=== PATIENT | female | born 1955 | race Hispanic/Latino ===

== ENCOUNTER 2019-07-29 17:18 | Emergency (ER) | payer MEDICARE, BC ==
[~2019-07-29] VITALS: Ht 147.3 cm; Wt 60.8 kg
--- OUTSIDE RECORDS SUMMARY | 2019-07-29 17:21 | XMS REPORT ---
Author Author [facility] Address Unknown Phone Unavailable Care Team Providers Care Sales Consultant Name Role Phone Unavailable Unavailable Payers Payer Name Policy Type Policy Number Effective Date Expiration Date Problems This patient has no known problems. Allergies, Adverse Reactions, Alerts Allergy Name Allergy Type Status Severity Reaction(s) Onset Date Inactive Date Treating Clinician Comments aspirin DA Active [place] 2018-11-14 00:00:00 DALE Inhibitors DA Active [place] 2018-10-21 00:00:00 DALE Inhibitors DA Active [place] 2018-10-20 00:00:00 DALE Inhibitors DA Active [place] 2018-02-17 00:00:00 Medications This patient has no known medications. Encounters Start Date/Time End Date/Time Encounter Type Admission Type Attending [facility] Facility Care Department Encounter ID 2019-03-27 08:11:00 2019-03-27 08:11:00 Outpatient [facility] [id number] Results Test Description Test Time Test Comments Text Results Atomic Results Result Comments - MRA NECK W/O CONT 2018-11-14 19:53:00 FAX: Tico Cardona MD [phone] [place]: B St: ADM FAX: Peace Tolentino [phone] Name: LEXIE PEREZ [facility] : 1955 Age/S: 63/F [address] [place] Unit #: [id number] Loc: [place] [place] [address] Phys: Peace Auguste MD Acct: [id number] Dis Date: Status: ADM IN PHONE #: [phone] Exam Date: 11/14/2018 1930 FAX #: [phone] Reason: TIA symptoms, slurred speech and left sided wea EXAMS: CPT CODE: [id number] MRA NECK W/O CONT 40090 REASON FOR EXAM: TIA symptoms, slurred speech and left sided weakness EXAM ORDER DATE: 11/14/2018 5:14 PM Ordering M.Wendi: Peace Auguste MD PROCEDURE: - MRA NECK W/O CONT FINDINGS: 2-D omfw-sr-vnriox images of the neck were obtained without IV contrast using MR angiogram protocol. The carotid and vertebral arteries are unremarkable. No evidence of stenosis or fluid obstructing lesion. Metallic artifact obscuring portion of the right vertebral artery IMPRESSION: Unremarkable cervical angiogram at 1952 Reported and signed by: Shaun Pickens M.D. CC: Tico Bella; Peace Auguste MD Technologist: RT EVE - MRI Trninrd Date/Time/By: 11/14/2018 (1952) : By: Corey Orig Print D/T: S: 11/14/2018 (1956) PAGE 1 Signed Report - MRI BRAIN W/O CONTRAST 2018-11-14 19:50:00 FAX: Tico Cardona MD [phone] [place]: B St: [facility] FAX: Peace Tolentino [phone] Name: LEXIE PEREZ [facility] : 1955 Age/S: 63/F [place] Unit #: [id number] Loc: [address] [place] [address] Phys: Peace Auguste MD Acct: [id number] Dis Date: Status: ADM IN PHONE #: [phone] Exam Date: 11/14/20181950 FAX #: [phone] Reason: TIA symptoms, slurred speech and left sided wea EXAMS: CPT CODE: [id number] MRI BRAIN W/O CONTRAST 41219 REASON FOR EXAM: TIA symptoms, slurred speech and left sided weakness Exam Order Date: 11/13/2018 5:14 PM Attending MLynda.: Peace Auguste MD Procedure: - MRI BRAIN W/O CONTRAST Comparison: FINDINGS: Axial, sagittal, and coronal images of the head were obtained using T1, T2 weighted, inversion recovery, and gradient echo sequences. The diffusion images are within normal limits without evidence of acute infarct. No IV gadolinium was given. The sagittal images show normal pituitary, cerebellum, and brain stem. No evidence of suprasellar mass. The axial T2, inversion recovery, and gradient e cho images show no evidence of intra or extra axial mass. The ventricles, cisterns, and sulci are unremarkable. No evidence of hemorrhage. Small punctate bright intensity signal lesions in the periventricular region consistent with nonspecific deep white matter disease. The cerebellar pontine angle area is within normal limits. There is no evidence of mass noted. The axial T1 images show no evidence of mass. No evidence of old infarct. The coronal images show normal optic chiasm. IMPRESSION: Minimal nonspecific deep white matter disease. Otherwise unremarkable brain. at 1950 Reported and signed by: Shaun Pickens M.D. PAGE 1 Signed Report (CONTINUED) FAX: Tico Cardona MD [phone] [place]: St: [facility] FAX: Peace Tolentino [phone] Name: LEXIE PEREZ [facility] : 1955 Age/S: 63/F [address] [facility] Unit #: [id number] Loc: V.[address] [place] [address] Phys: Peace Auguste MD Acct: [id number] Dis Date: Status: ADM IN PHONE #: [phone] Exam Date: 11/14/20181950 FAX #: [phone] Reason: TIA symptoms, slurred speech and left sided wea EXAMS: CPT CODE: [id number] MRI BRAIN W/O CONTRAST 16821 <Continued> CC: Tico Bella; Peace Auguste MD Technologist: SILVA MATAMOROSRT - [facility] Date/Time/By: 11/14/2018 (1949) : By: CharoVTL Orig Print D/T: S: 11/14/2018 (1952) PAGE 2 Signed Report TROPONIN-I 2018-11-14 02:14:00 TROPONIN-I (test code=TROPI) <0.015 ng/mL 0-0.045 COMMENTS TO CHECKER: COLLECT 3 HOURS AFTER PREVIOUS SAMPLEDRUGS OF ABUSE SCREEN [id number] 01:17:00* Test Item Value Reference Range Comments UA PH DIPSTICK (test code=NAI) 5.0 5.0-8.0 URN COCAINE (test code=COCAURN) NEGATIVE <300 ng/mL URN CANNABINOIDS (test code=CANNABURN) NEGATIVE <50 ng/mL URN AMPHETAMINE (test code=AMPHETURN) NEGATIVE <1000 ng/mL URN BARBITURATE (test code=BARBITURN) NEGATIVE <200 ng/mL URN BENZODIAZEPINE (test code=BENZOURN) NEGATIVE <200 ng/mL URN OPIATES (test code=OPIATURN) NEGATIVE <300 ng/mL URN PHENCYCLIDINE (PCP) (test code=PHENCURN) NEGATIVE <25 ng/mL URN METHADONE (test code=METHAURN) NEGATIVE <300 ng/mL DRUGS OF ABUSE SCREEN [id number] 00:48:00* Test Item Value Reference Range Comments UA PH DIPSTICK (test code=NAI) 5.0 5.0-8.0 URN COCAINE (test code=COCAURN) <300 ng/mL URN CANNABINOIDS (test code=CANNABURN) <50 ng/mL URN AMPHETAMINE (test code=AMPHETURN) <1000 ng/mL URN BARBITURATE (test code=BARBITURN) <200 ng/mL URN BENZODIAZEPINE (test code=BENZOURN) <200 ng/mL URN OPIATES (test code=OPIATURN) <300 ng/mL URN PHENCYCLIDINE (PCP) (test code=PHENCURN) <25 ng/mL URN METHADONE (test code=METHAURN) <300 ng/mL [id number] 22:42:00* Test Item Value Reference Range Comments TROPONIN-I (test code=TROPI) <0.015 ng/mL 0-0.045 COMMENTS TO CHECKER: COLLECT 3 HOURS AFTER PREVIOUS SAMPLEURINALYSIS [id number] 16:45:00* Test Item Value Reference Range Comments UA COLOR (test code=COLU) EVETTE YELLOW UA APPEARANCE (test code=APPU) Cloudy CLEAR UA GLUCOSE DIPSTICK (test code=DGLUU) NEGATIVE mg/dL NEGATIVE UA BILIRUBIN DIPSTICK (test code=BILU) NEGATIVE mg/dL NEGATIVE UA KETONE DIPSTICK (test code=KETU) Negative mg/dL NEGATIVE UA SPECIFIC GRAVITY (test code=SGU) 1.027 1.001-1.035 UA BLOOD DIPSTICK (test code=MARCELO) Negative NEGATIVE UA PH DIPSTICK (test code=NAI) 5.0 5.0-8.0 UA PROTEIN DIPSTICK (test code=PROU) Negative mg/dL NEGATIVE UA UROBILINIOGEN DIPSTICK (test code=URO) 4.0 (2+) mg/dL NEGATIVE UA NITRITE DIPSTICK (test code=DARRON) NEGATIVE NEGATIVE UA LEUKOCYTE ESTERASE W REFLEX (test code=LEUUR) TRACE NEGATIVE UA WBC (test code=WBCU) 0-5 #/HPF 0-5 UA RBC (test code=RBCU) 11-20 #/HPF 0-5 UA EPITHELIAL CELLS (test code=EPIU) FEW per HPF FEW UA CALCIUM CARBONATE CRYSTALS (test code=CACARBU) MODERATE #/HPF NONE UA MUCUS (test code=MUCU) MANY #/LPF FEW Urine Source? Clean Catch- CT HEAD/BRAIN W/O [id number] 16:45:00 Name: LEXIE PEREZ [facility] : 1955 Age/S: 63 / F [address] Unit #: [id number] Loc: [place] [address] Phys: Billy Auguste MD Acct: [id number] Di s Date: Status: REG ER PHONE #: Exam Date: 11/13/2018 1626 FAX #: Reason: left sided face/arm numbness, slurred speech EXAMS: CPT CODE: [id number] CT HEAD/BRAIN W/O CONT 70984 EXAM: CT of the head with out contrast; INFORMATION: Slurred speech, left-sided facial and a rm numbness; TECHNIQUE AND FINDINGS: CT dose reduction elizabeth col; 2.5 mm axial scans. There is no evidence of intra or extra-axia l hemorrhage, mass lesions or midline shift. Unremarkable hobson/white matter differentiation. Ventricles are symmetric and of normal diameter; sulci and basilar cisterns are intact. The calvarium is intact. Paranasal sinuses and mastoid air cells are well aerated. IMPR ESSION: Unremarkable CT scan of the head; no evidence of intracranial hemorrhage or acute territorial infarction. Pham gonzales Signed by Lizette Nieto on 11/13/2018 a t 1645 Reported and signed by: Av Barbosa ch, M.D. CC: Tico Bella; Peace Auguste MD Technologist:Roya Lauren RT(R),CT; CTDI: DLP: Tr nscb Date/Time: 11/13/2018 (612) [email or web address] Orig Print D/ T: S: 11/13/2018 (7226) CTDI: DLP: PAGE 1 Signed Report B-TYPE NATRIURETIC PEPTIDE 2018-11-13 16:41:00* Test Item Value Reference Range Comments B-TYPE NATRIURETIC PEPTIDE (test code=BNP) 56.84 pgram/mL 0-100 BASIC METABOLIC [id number] 16:37:00* Test Item Value Reference Range Comments SODIUM (test code=NA) 141 mmol/L 136-145 POTASSIUM (test code=K) 3.3 mmol/L 3.5-5.1 CHLORIDE (test code=CL) 107.0 mmol/L 98-107 CARBON DIOXIDE (test code=CO2) 27.0 mmol/L 21-32 ANION GAP (test code=GAP) 10.3 10-20 GLUCOSE (test code=GLU) 97 mg/dL 74-106 BLOOD UREA NITROGEN (test code=BUN) 9 mg/dL 7-18 GLOMERULAR FILTRATION RATE (test code=GFR) > 60 mL/min >=60 Estimated GFR by using Modified MDRD formula.Chronic kidney disease is defined as either kidney damageor GFR <60 mL/min/1.73 m2 for >3 months. CREATININE (test code=CREAT) 0.70 mg/dL 0.55-1.02 Note change in reference range due to change in reagent. BUN/CREATININE RATIO (test code=BUN/CREA) 13.3 10-20 CALCIUM (test code=CA) 8.9 mg/dL 8.5-10.1 HEPATIC FUNCTION [id number] 16:37:00* Test Item Value Reference Range Comments TOTAL PROTEIN (test code=PROT) 7.9 gram/dL 6.4-8.2 ALBUMIN (test code=ALB) 3.6 g/dL 3.4-5.0 GLOBULIN (test code=GLOB) 4.3 gram/dL 2.7-4.2 ALBUMIN/GLOBULIN RATIO (test code=A/G) 0.8 0.75-1.50 BILIRUBIN TOTAL (test code=BILT) 0.60 mg/dL 0.0-1.0 BILIRUBIN DIRECT (test code=BILD) 0.19 mg/dL 0.0-0.20 SGOT/AST (test code=AST) 17 IUnit/L 15-37 SGPT/ALT (test code=ALT) 23 IUnit/L 12-78 ALKALINE PHOSPHATASE TOTAL (test code=ALKP) 111 IUnit/L 45-117 Note change in reference range due to change in reagent. [id number] 16:37:00* Test Item Value Reference Range Comments LIPASE (test code=LIP) 76 U/L 73.0-393.0 [id number] 16:37:00* Test Item Value Reference Range Comments MAGNESIUM (test code=MAG) 2.6 mg/dL 1.8-2.4 CPK-MB [id number] 16:37:00* Test Item Value Reference Range Comments CREATINE KINASE (CK) (test code=CK) 46 IUnit/L 26-208 CKMB (test code=CKMBT) < 1.0 ng/mL 0-6.0 RELATIVE % INDEX (test code=REL%) 2.17 % 0.00-2.50 "If the total CK is elevated, the CKMB Fraction must beinterpreted as a Relative % Index, Normal is less than 2.5%"NOTE: Relative % Index is not valid with a normal total CK. [id number] 16:37:00* Test Item Value Reference Range Comments TROPONIN-I (test code=TROPI) <0.015 ng/mL 0-0.045 BASIC METABOLIC [id number] 16:29:00* Test Item Value Reference Range Comments SODIUM (test code=NA) 141 mmol/L 136-145 POTASSIUM (test code=K) 3.3 mmol/L 3.5-5.1 CHLORIDE (test code=CL) 107.0 mmol/L 98-107 CARBON DIOXIDE (test code=CO2) mmol/L 21-32 ANION GAP (test code=GAP) 10-20 GLUCOSE (test code=GLU) mg/dL 74-106 BLOOD UREA NITROGEN (test code=BUN) mg/dL 7-18 GLOMERULAR FILTRATION RATE (test code=GFR) mL/min >=60 CREATININE (test code=CREAT) mg/dL 0.55-1.02 BUN/CREATININE RATIO (test code=BUN/CREA) 10-20 CALCIUM (test code=CA) mg/dL 8.5-10.1 HEPATIC FUNCTION [id number] 16:29:00* Test Item Value Reference Range Comments TOTAL PROTEIN (test code=PROT) gram/dL 6.4-8.2 ALBUMIN (test code=ALB) g/dL 3.4-5.0 GLOBULIN (test code=GLOB) gram/dL 2.7-4.2 ALBUMIN/GLOBULIN RATIO (test code=A/G) 0.75-1.50 BILIRUBIN TOTAL (test code=BILT) mg/dL 0.0-1.0 BILIRUBIN DIRECT (test code=BILD) mg/dL 0.0-0.20 SGOT/AST (test code=AST) IUnit/L 15-37 SGPT/ALT (test code=ALT) IUnit/L 12-78 ALKALINE PHOSPHATASE TOTAL (test code=ALKP) IUnit/L 45-117 [id number] 16:29:00* Test Item Value Reference Range Comments LIPASE (test code=LIP) U/L 73.0-393.0 [id number] 16:29:00* Test Item Value Reference Range Comments MAGNESIUM (test code=MAG) mg/dL 1.8-2.4 CPK-MB [id number] 16:29:00* Test Item Value Reference Range Comments CREATINE KINASE (CK) (test code=CK) IUnit/L 26-208 CKMB (test code=CKMBT) ng/mL 0-6.0 RELATIVE % INDEX (test code=REL%) % 0.00-2.50 [id number] 16:29:00* Test Item Value Reference Range Comments TROPONIN-I (test code=TROPI) ng/mL 0-0.045 URINALYSIS [id number] 16:22:00* Test Item Value Reference Range Comments UA COLOR (test code=COLU) EVETTE YELLOW UA APPEARANCE (test code=APPU) Cloudy CLEAR UA GLUCOSE DIPSTICK (test code=DGLUU) NEGATIVE mg/dL NEGATIVE UA BILIRUBIN DIPSTICK (test code=BILU) NEGATIVE mg/dL NEGATIVE UA KETONE DIPSTICK (test code=KETU) Negative mg/dL NEGATIVE UA SPECIFIC GRAVITY (test code=SGU) 1.027 1.001-1.035 UA BLOOD DIPSTICK (test code=MARCELO) Negative NEGATIVE UA PH DIPSTICK (test code=NAI) 5.0 5.0-8.0 UA PROTEIN DIPSTICK (test code=PROU) Negative mg/dL NEGATIVE UA UROBILINIOGEN DIPSTICK (test code=URO) 4.0 (2+) mg/dL NEGATIVE UA NITRITE DIPSTICK (test code=DARRON) NEGATIVE NEGATIVE UA LEUKOCYTE ESTERASE W REFLEX (test code=LEUUR) TRACE NEGATIVE UA WBC (test code=WBCU) per HPF 0-5 Urine Source? Clean CatchCBC W/O [id number] 16:10:00* Test Item Value Reference Range Comments WHITE BLOOD CELL (test code=WBC) 10.5 K/mm3 4.5-12.5 RED BLOOD CELL (test code=RBC) 4.98 mill/mm3 3.7-5.2 HEMOGLOBIN (test code=HGB) 14.3 gram/dL 11.5-15.5 HEMATOCRIT (test code=HCT) 44.3 % 36.0-46.0 MEAN CELL VOLUME (test code=MCV) 89.0 fL 80-98 MEAN CELL HGB (test code=MCH) 28.7 picogram 27.0-33.0 MEAN CELL HGB CONCETRATION (test code=MCHC) 32.3 gram/dL 33.0-36.0 RED CELL DISTRIBUTION WIDTH (test code=RDW) 12.9 % 11.6-16.2 PLATELET COUNT (test code=PLT) 395 K/mm3 150-450 MEAN PLATELET VOLUME (test code=MPV) 10.7 fL 6.7-11.0 TROPONIN I [id number] 16:05:00* Test Item Value Reference Range Comments TROPONIN I RAPID (test code=TROPIRAP) 0.00 ng/mL <0.08 Please Note New Reference Range 0.00-0.079 ng/mL - Negative>or=0.08 ng/mL - Positive The use of serial sampling and testing protocol is arecommended practice.An elevated troponin level alone is often not sufficient fordiagnosis of myocardial infarction. Troponin results obtained by different assays may vary.Evaluation of the extent of myocardial damage based onincrease of troponin would be valid only if similarmethodology is used. - XR CHEST 2 [id number] 15:30:00 FAX: Tico Cardona MD [phone] [place]: B St: [facility] FAX: Peace Tolentino [phone] Name: LEXIE PEREZ [facility] : 1955 Age/S: 63/F [address] Unit #: [id number] Loc: [place] [address] Phys: Peace Auguste MD Acct: [id number] Dis Date: Status: REG ER PHONE #: [phone] Exam Date: 11/13/2018 150 FAX #: [phone] Reason: CHEST PAIN EXAMS: CPT CODE: [id number] XR CHEST 2 V 44615 REASON FOR EXAM: CHEST PAIN Exam Order Date: 11/13/2018 2:42 PM Ordering M.D.: Peace Auguste MD PROCEDURE: - XR CHEST 2 V COMPARISON: AP chest x-ray February 17, 2018 FINDINGS: The lungs are clear. There is no pleural effusion. Cardiomediastinal silhouette is normal in size for technique. Pulmonary vasculature is within normal limits Incompletely visualized hardware in the cervical spine is grossly unchanged. Remaining musculoskeletal structures are within normal limits. There has been a prior c holecystectomy. IMPRESSION: No acute cardiopulmonary pro cess. at 1530 Reported and signed by: Luis Felipe Nettles C: Tico Bella; Peace Auguste MD Technologist: Nuvia Fisher Trnscrd Date/Time/By: 11/13/2018 (1530) : By: [email or web address] Orig Print D/T: S: 11/13/2018 (9174) PAGE 1 Signed Report [id number] 12:48:00* Test Item Value Reference Range Comments GLUBED (test code=GLUBED) 95 mg/dL 60-125 - XR FLUORO FOR SPINE [id number] 15:06:00 Patient Name: LEXIE CHAMPAGNE Unit No: [id number] EXAMS: CPT CODE: [id number] XR FLUORO FOR SPINE INJ 63650 CERVICAL TRANSFORAMINAL INJECTION REFERRING PHYSICIAN: PREOPERATIVE DIAGNOSIS: Cervical radiculitis POSTOPERATIVE DIAGNOSIS: Bilateral cervical radiculopathy PROCEDURES PERFORMED: Fl uoroscopically guided needle localization of the bilateral C6, left C5, ri ght C7 spinal nerves with transforaminal epidural steroid injection/injec tions. 2. Transforaminal epidurogram/epidurograms at bilateral C 6, left C5, right C7 FINDINGS: Poor filling all. Conc ordant provocation bilateral C6 into the neck, right C7 posterior shoulder s. Pain relief-100%. ANTIBIOTICS:Cefazolin ESTIMATE D BLOOD LOSS: Minimal ANESTHESIA: (TIVA ) Total intravenous anesth etic (patient intolerant to sedatives and hypnotics) COMPLIC ATIONS: None DETAILS OF PROCEDURE: After obtaining stable vital si gns, informed consent and IV access, with no known contraindications to pr oceeding, the patient was taken to the fluoroscopy suite and placed in a s upine position with all extremities padded and appropriate monitors placed . A sterile prep and drape was performed over the cervical spine. Using fluoroscopic visualization at each level the insertion site was marked for a paravertebral approach to the foramen. Using standard techn ique, a 27gauge needle was advanced to the base of the pedicle. In AP view , final positioning was obtained outside the 6 on a clock position on the pedicle. Then, 0.5 ml of Isovue-300 contrast was injected to produce the e pidurograms. No paresthesias were elicited with needle insertion or inject ion and there were no signs of intravascular or intrathecal uptake. Then, 0.5 ml of 4% lidocaine was injected as a test dose with no signs of intrav ascular or intrathecal uptake. Next, 10 mg of Decadron was injected inc rementally with frequent negative aspirations.Each subsequent cervical ner ve root sleeve was done with the same technique and medications were used.There were no signs of intravascular or intrathecal uptake. The jaimee ent's vital signs remained stable. The patient was taken to the PACU in go od condition. [facility] NAME: LEXIE PALACIOS [address] [facility] PHYS: DOCUD - Doctor,Sky Coates MD [place], [place] [address] : 1955 AGE: 63 S EX: F LOC: TREVIN PHONE #: [phone] EXAM DATE: 10/21/2018 STATUS: REG [facility] FAX #: [phone] RAD #: D/C DT PAGE 1 Signed Report (CONTINUED) Patient Name: LEXIE WALSH Unit No: [id number] EXAMS: CPT CODE: [id number] XR FLUORO FOR SP INE INJ 61046 <Continued> at 1506 Reported and signed by: Sky Rizo M.D. CC: Sky Rizo MD Technologist: Indira Chamorro(R) Transcribed D/ (0137) Jonah [facility] NAME: LEXIE WASLH [address] PHYS: Sky Gutierres MD [place] [address] : 1955 AGE: 63 SEX: F LOC: TREVIN PHONE #: [phone] EXAM DATE: 10/21/2018 STATUS: REG [facility] FAX #: [phone] RAD #: D/C DT PAGE 2 S igned Report Patient Name: DEIDRA WALSH Unit No: [id number] EXAMS: CPT CODE: [id number] XR FLUORO FOR SPINE INJ 7 7003 <Continued> Orig Print D/T: S: 10/21/2018 (1501) [facility] NAME: LEXIE WALSH [address] [facility] [address] PHYS: Sky Gutierres MD [place] [address] : 1955 AGE: 63 SEX: F LOC: TREVIN PHONE #: [phone] EXAM DATE: 10/21/2018 STATUS: REG [facility] FAX #: [phone] RAD #: D/C DT PAGE 3 Signed Report [id number] 09:14:00* Test Item Value Reference Range Comments GLUBED (test code=GLUBED) 93 mg/dL 60-125
--- OUTSIDE RECORDS SUMMARY | 2019-07-29 17:21 | XMS REPORT | Summary of Care ---
Author Author Tonie Canchola M.A. Unknown Address Unknown Phone Unavailable Care Team Providers Care Die Drawing Checker Name Role Phone CARMELINA GLYNN M.D. Unavailable Unavailable Unavailable Unavailable Functional Status Name Dates Details Functional status health issues are not documented Status: Name Dates Details Cognitive status health issues are not documented Status: Problems Name Dates Details Right shoulder pain, unspecified chronicity (719.41, M25.511) Status: Active Low back pain, unspecified back pain laterality, unspecified chronicity, with sciatica presence unspecified (724.2, M54.5) Status: Active Medications Name Dates Details CloNIDine HCl - 0.1 MG Oral Tablet Active TiZANidine HCl TABS * Refills: 0 Active Cymbalta CPEP * Refills: 0 Active Allergies and Adverse Reactions Name Dates Details DALE Inhibitors (Allergy) Status: Active Past Medical History Name Dates Details History of Back pain (724.5, M54.9) Status: Resolved History of blood clots (V12.51, Z86.718) Status: Resolved History of Cancer (199.1, C80.1) Status: Resolved History of Depression (311, F32.9) Status: Resolved History of Diabetes mellitus, type 2 (250.00, E11.9) Status: Resolved History of Gallbladder disease (575.9, K82.9) Status: Resolved History of Glaucoma (365.9, H40.9) Status: Resolved History of High blood pressure (401.9, I10) Status: Resolved History of Staph infection (041.10, B95.8) Status: Resolved Procedures Procedure Dates Details History of Lumbar vertebral fusion Completed History of Bladder surgery Completed Immunization Name Dates Details Immunizations not documented Family History Name Dates Details Family history of diabetes insipidus (V18.19, Z83.49) Status: Active Family history of hypertension (V17.49, Z82.49) Status: Active Social History Name Dates Details Unknown if ever smoked Vital Signs Date Test Result Details [id number] Height 58 in Status: Weight 118 lb Status: Body Mass Index Calculated 24.66 kg/m2 Status: Body Surface Area Calculated 1.46 m2 Status: Results Date Description Value Details [id number] [U] XRAY SHOULDER MIN 2 VWS RIGHT 36915 XR SHOULDER MIN 2 VWS RIGHT Images acquired, not reported on this accession number. [id number] [U] XRAY SPINE LUMBOSACRAL 2 OR 3 VWS 81035 XR SPINE LUMBOSACRAL 2 OR 3 VWS Images acquired, not reported on this accession number. Plan of Care Name Dates Details Planned Observations Planned Goals not documented Interventions Provided Labs/Procedures/Imaging* [U] XRAY SHOULDER MIN 2 VWS RIGHT 48481; Done: 17 Aug 2018 * [U] XRAY SPINE LUMBOSACRAL 2 OR 3 VWS 06376; Done: 17 Aug 2018 Instructions Name Dates Details Instructions not documented Encounters Appointment; CARMELINA GLYNN M.D. Encounter Diagnosis: Problem not documented On: 17-Aug-2018 14:00
[2019-07-29] MEDS ORDERED: METHYLPREDNISOLONE SOD SUCC 125 MG/2ML VIAL IV ONE (17:30)
[2019-07-29] MEDS ORDERED: DIPHENHYDRAMINE HCL INJ 50 MG/ML VIAL IV ONE (18:00)
[2019-07-29] MEDS ORDERED: FAMOTIDINE 20 MG/2 ML VIAL IV ONE (18:00)
[2019-07-29] MEDS ORDERED: SODIUM CHLORIDE 0.9% 500ML 500 ML IV ONE (18:15)
--- NOTE | 2019-07-29 18:17 | NUR ---
report recieved from nathalie watson
[2019-07-29 19:19] VITALS: BP 137/68
== END 2019-07-29 19:30 | disposition home or self-care (01) ==
LOC: ER 17:18
DX: T78.3XXA Angioneurotic edema, initial encounter (principal); T39.314A Poisoning by propionic acid derivatives, undetermined, initial encounter

== ENCOUNTER 2019-11-15 08:54 | Emergency (ER) | payer MEDICARE, BC ==
[~2019-11-15] VITALS: Ht 147.3 cm; Wt 60.8 kg
[2019-11-15] MEDS ORDERED: LIDOCAINE 4% PATCH TP STA (08:58)
[2019-11-15] MEDS ORDERED: HYDROCODONE/APAP 5MG-325MG TAB PO ONE (09:00)
[2019-11-15 11:32] VITALS: BP 138/76
--- NOTE | 2019-11-15 12:04 | Diagnostic Imaging Report ---
Exam: Left rib series Clinical history: Status post fall Findings: There is no evidence of acute displaced fractures in the visualized osseous structures. The cardiac size is within normal limits. There is no evidence of pulmonary consolidation, pleural effusion, or pneumothorax. The patient is status post cervical spine fusion with postoperative changes. Impression: 1. No radiographic evidence of acute osseous injury. Signed by: Dr. Lm Loera MD on 11/15/2019 12:02 PM
== END 2019-11-15 11:18 | disposition home or self-care (01) ==
LOC: ER 08:54
DX: R07.89 Other chest pain (principal); S20.212A Contusion of left front wall of thorax, initial encounter; W22.09XA Striking against other stationary object, initial encounter; Y92.512 Supermarket, store or market as the place of occurrence of the external cause; I10 Essential (primary) hypertension; Z98.84 Bariatric surgery status
CPT/HCPCS: 71101; 93005; 99282

== ENCOUNTER 2020-07-16 19:25 | Emergency (ER) | payer MEDICARE, BC ==
[~2020-07-16] VITALS: Ht 147.3 cm; Wt 60.8 kg
--- OUTSIDE RECORDS SUMMARY | 2020-07-16 20:18 | XMS REPORT | Continuity of Care Document ---
Author Author [facility] t Organization [facility] Address [address] [place] [address] Phone Unavailable Care Team Providers Care Patient Service Coordinator Name Role Phone NONSTAFF PCP Unavailable JENNIFER LANDAVERDE Attphys Unavailable CARMELINA GLYNN M.D. Attphys Unavailable Payers Payer Name Policy Type Policy Number Effective Date Expiration Date S [employer] [id number] 2015 00:00:0 0 [facility] Medicare A & B [id number] 2013 00:00:00 [facility] Problems Condition Name Condition Details Condition Category Status Onset Date Resolution Date Last Treatment Date Treating Clinician Comments Source History of Back pain History of Back pain Problem HL7.CCDAR2 Resolved [facility] History of blood clots History of blood clots Problem HL7.CCDAR2 Resolve d [facility] History of Cancer History of Cancer Problem HL7.CCDAR2 Resolved [facility] History of Depression History of Depression Problem HL7.CCDAR2 Resolved [facility] History of Diabetes mellitus, type 2 History of Diabetes tia litus, type 2 Problem HL7.CCDAR2 Resolved [facility] History of Gallbladder disease History of Gallbladder diseas e Problem HL7.CCDAR2 Resolved [facility] History of Glaucoma History of Glaucoma Problem HL7.CCDAR2 Resolved [facility] History of High blood pressure History of High blood pressur e Problem HL7.CCDAR2 Resolved [facility] History of Staph infection History of Staph infection Problem HL 7.CCDAR2 Resolved [facility] Right shoulder pain, unspecified chronicity Right shou lder pain, unspecified chronicity Problem HL7.CCDAR2 [facility] Low back pain, unspecified back pain lat erality, unspecified chronicity, with sciatica presence unspecified Low back pain, unspecified back pain lat erality, unspecified chronicity, with sciatica presence unspecified Problem HL7.CCDAR2 Active [facility] Dyspareunia in female Dysp areunia in female Active Problem 01/07/2018 Aramis Rodriguez Problem Active 2018-01-07 02:46:4 2 [facility] Postmenopausal atrophic vaginitis Postmenopausal atrophic vaginitis Active Problem 01/07/2018 Aramis Rodriguez Problem Ac tive 2018-01-07 02:46:42 [facility] Allergies, Adverse Reactions, Alerts Allergy Name Allergy Type Status Severity Reaction(s) Onset Date Inacti ve Date Treating Clinician Comments Source Angiotensin-converting enzyme inhibitor Allergy to Substance Active Severe COUGH 2019-11-15 00:00:00 [facility] Aspirin Allergy to Substance Active 2019-07-29 00:00:00 [facility] aspirin DA Active [place] 2018-11-14 00:00:00 [facility] DALE Inhibitors DA Active [place] 2018-10-21 00:00:00 [facility] DALE Inhibitors DA Active [place] 2018-10-20 00:00:00 [facility] DALE Inhibitors DA Active [place] 2018-02-17 00:00:00 [facility] N.K.D.A. N.K.D.A. Active Info Not Available 2017-12-28 00:00:00 [facility] DALE Inhibitors drug allergy Active [facility] Family History Family Member Diagnosis Comments Start Date Stop Date Source Mother Family history of diabetes insipidus [facility] Mother Family history of hypertension [facility] Medications Ordered Medication Name Filled Medication Name Start Date Stop Da te Current Medication? Ordering Clinician Indication Dosage Frequency Signature (SIG) Comments Components Source Clonidine HCl 2018-01-07 02:46:42 Yes Aramis Hdzl er 1 tablet at bedtime [facility] Atenolol 2018-01-07 02:46:42 Yes Aramis Rodriguez 1 tablet [facility] Estradiol 2018-01-07 02:46:42 Yes Aramis Rodriguez 1 tablet [facility] ReZyst IM 2018-01-07 02:46:42 Yes Aramis Rodriguez as directed [facility] Losartan Potassium 2018-01-07 02:46:42 Yes Aramis Zendejas Sc hettler 1 tablet [facility] Intrarosa 2017-12-28 00:00:00 Yes Aramis Rodriguez once nightly [facility] CloNIDine HCl - 0.1 MG Oral Tablet CloNIDine HCl - 0.1 MG Oral Tablet Yes [facility] TiZANidine HCl TABS TiZANidine HCl TABS Yes [facility] Cymbalta CPEP Cymbalta CPEP Yes [facility] Vital Signs Vital Name Observation Time Observation Value Comments Source Height 2018-08-17 14:18:00 58 [in_us] [facility] Weight 2018-08-17 14:18:00 118 [lb_av] [facility] Body Mass Index Calculated 2018-08-17 14:18:00 24.66 kg/m2 [facility] Weight 2017-12-28 16:30:00 Donna Burden Height 2017-12-28 16:30:00 [facility] Diastolic (mm Hg) 2017-12-28 16:30:00 [facility] Systolic (mm Hg) 2017-12-28 16:30:00 Lexx roddy Burden Procedures Procedure Date / Time Performed Performing Clinician [facility] e EMERGENCY DEPT VISIT 2019-07-29 00:00:00 [facility] History of Lumbar vertebral fusion [facility] History of Bladder surgery [facility] Encounters Start Date/Time End Date/Time Encounter Type Admission Type [facility] Facility Care Department Encounter ID Source 2019-11-15 08:54:00 2019-11-15 11:18:00 Departed Emergency Room [address] [facility] [id number] [facility] 2019-07-29 17:18:00 2019-07-29 19:30:[address] [facility] [id number] [facility] 2019-03-27 08:11:00 2019-03-27 08:11:00 Outpatient [facility] 2018-08-17 14:00:00 2018-08-17 14:00:00 Appointment; CARMELINA GLYNN M.D. OZOUDE, GEORGE, M.D. [facility] Orthopedic Surgery [facility] [id number] [facility] 2017-12-28 11:30:00 2017-12-28 11:30:00 Outpatient Aramis ORTEGA [id number] eClinicalWork s Results Test Description Test Time Test Comments Results Result Comments Source RIBS UNILAT W/CXR 2019-11-15 12:00:00 [facility] [address] [place] [address] Patient Name: Tho BUTT MR #: [id number] : 1955 Age/Sex: 64/F Req #: [id number] Adm Physician: Ordered by: EMELY BRIGGS LEHR STRIPPER Report #: [id number] Location: ER Room/Bed: Procedure: [id number] DX/RIBS UNILAT W/CXR Exam Date: 11/15/19 Exam Time: 0949 REPORT STATUS: Signed Exam: Left rib series Clinical history: Status post fall Findings: There is no evidence of acute displaced fractures in the visualized osseous structures. The cardiac size is within normal limits. There is no evidence of pulmonary consolidation, pleural effusion, or pneumothorax. The patient is status post cervical spine fusion with postoperative changes. Impression: 1. No radiographic evidence of acute osseous injury. Signed by: Dr. Lm Loera MD on 11/15/2019 12:02 PM Dictated By: BUSHRA LOERA MD 01 Transcribed By: GLEN on 11/15/191201 COPY TO: EMELY BRIGGS LEHR STRIPPER - MRA NECK W/O CONT 2018-11-14 19:53:00 FAX: Tico Cardona MD [phone] [place]: St: ADM FAX: Peace Tolentino [phone] Name: LEXIE PEREZ [facility] : 1955 Age/S: 63/F [address] [facility] Unit #: [id number] Loc: V.30[address] [place] [address] Phys: Peace Auguste MD Acct: [id number] Dis Date: Status: ADM IN PHONE #: [phone] Exam Date: 11/14/2018 193 FAX #: [phone] Reason: TIA symptoms, slurred speech and left sided wea EXAMS: CPT CODE: [id number] MRA NECK W/O CONT 21371 REASON FOR EXAM: TIA symptoms, slurred speech and left sided weakness EXAM ORDER DATE: 11/14/2018 5:14 PM Ordering Lizette: Peace Auguste MD PROCEDURE: - MRA NECK W/O CONT FINDINGS: 2-D rcmx-cw-vwuryv images of the neck were obtained without IV contrast using MR angiogram protocol. The carotid and vertebral arteries are unremarkable. No evidence of stenosis or fluid obstructing lesion. Metallic artifact obscuring portion of the right vertebral artery IMPRESSION: Unremarkable cervical angiogram at 1953 Reported and signed by: Shaun Pickens M.D. CC: Tico Bella; Peace Auguste MD Technologist: SILVA MATAMOROSRT - MRI Trnscrd Date/Time/By: 11/14/2018 (1952) : By: CharoVTL Orig Print D/T: S: 11/14/2018 (1956) PAGE 1 Signed Report - MRI BRAIN W/O CONTRAST 2018-11-14 19:50:00 FA X: Tico Cardona MD [phone] [place]: St: [facility] FAX: Peace Tolentino [phone] Name: LEXIE PEREZ [facility] : 1955 Age/S: 63/F [address] [facility] Unit #: [id number] Loc: V.30[address] [place] [address] Phys: Peace Auguste MD Acct: [id number] Dis Date: Status: ADM IN PHONE #: [phone] Exam Date: 11/14/20181950 FAX #: [phone] Reason: TIA symptoms, slurred speech and left sided wea EXAMS: CPT CODE: [id number] MRI BRAIN W/O CONTRAST 75258 REASON FOR EXAM: TIA symptoms, slurred speech and left sided weakness Exam Order Date: 11/13/2018 5:14 PM Attending M.DWill: Peace Auguste MD Procedure: - MRI BRAIN W/O CONTRAST Comparison: FINDINGS: Axial, sagittal, and coronal images of the h ead were obtained using T1, T2 weighted, inversion recovery, and gradient echo sequences. The diffusion images are within normal limits without evidence of acute infarct. No IV gadolinium was given. The sagittal images show normal pituitary, cerebellum, and brain stem. No evidence of suprasellar mass. The axial T2, inversion recovery, and gradient echo images show no evidence of intra or [...] Signed Report (CONTINUED) FAX: Tico Cardona MD [phone] [place]: St: ADM FAX: Peace Tolentino [phone] Name: LEXIE PEREZ [facility] : 1955 Age/S: 63/F [address] [facility] Unit #: [id number] Loc: V.3075 [place] [address] Phys: Peace Auguste MD Acct: [id number] Dis Date: Status: ADM IN PHONE #: [phone] Exam Date: 11/14/20181950 FAX #: [phone] Reason: TIA symptoms, slurred speech and left sided wea EXAMS: CPT CODE: [id number] MRI BRAIN W/O CONTRAST [id number] <Continued> CC: Tico Bella; Peace Auguste MD Technologist: SILVA MATAMOROSRT - MRI Trnakrd Date/Time/By: 11/14/2018 (1949) : By: Corey Orig Print D/T: S: 11/14/2018 (1953) PAGE 2 Signed Report TROPONIN-I 2018-11-14 02:14:00 Test Item TROPONIN-I (test code = TROPI) <0.015 ng/mL 0-0.045 N COMMENTS TO DIRECTOR SEARCH: COLLECT 3 HOURS AFTER PREVIOUS SAMPLEDRUGS OF ABUSE SCREEN [id number] 01:17:00* Test Item Value Reference Range Interpretation Comments UA PH DIPSTICK (test code = NAI) 5.0 5.0-8.0 URN COCAINE (test code = COCAURN) NEGATIVE <300 ng/mL URN CANNABINOIDS (test code = CANNABURN) NEGATIVE <50 ng/mL URN AMPHETAMINE (test code = AMPHETURN) NEGATIVE <1000 ng/mL URN BARBITURATE (test code = BARBITURN) NEGATIVE <200 ng/mL URN BENZODIAZEPINE (test code = BENZOURN) NEGATIVE <200 ng/mL URN OPIATES (test code = OPIATURN) NEGATIVE <300 ng/mL URN PHENCYCLIDINE (PCP) (test code = PHENCURN) NEGATIVE <25 ng/ mL URN METHADONE (test code = METHAURN) NEGATIVE <300 ng/mL DRUGS OF ABUSE SCREEN [id number] 00:48:00* Test Item Value Reference Range Interpretation Comments UA PH DIPSTICK (test code = NAI) 5.0 5.0-8.0 URN COCAINE (test code = COCAURN) <300 ng/mL URN CANNABINOIDS (test code = CANNABURN) <50 ng/mL URN AMPHETAMINE (test code = AMPHETURN) <1000 ng/mL URN BARBITURATE (test code = BARBITURN) <200 ng/mL URN BENZODIAZEPINE (test code = BENZOURN) <200 ng/mL URN OPIATES (test code = OPIATURN) <300 ng/mL URN PHENCYCLIDINE (PCP) (test code = PHENCURN) <25 ng/ mL URN METHADONE (test code = METHAURN) <300 ng/mL [id number] 22:42:00* Test Item Value Reference Range Interpretation Comments TROPONIN-I (test code = TROPI) <0.015 ng/mL 0-0.045 N COMMENTS TO DIRECTOR SEARCH: COLLECT 3 HOURS AFTER PREVIOUS SAMPLEURINALYSIS [id number] 16:45:00* Test Item Value Reference Range Interpretation Comments UA COLOR (test code = COLU) EVETTE YELLOW A UA APPEARANCE (test code = APPU) Cloudy CLEAR A UA GLUCOSE DIPSTICK (test code = DGLUU) NEGATIVE mg/dL NEGATIVE UA BILIRUBIN DIPSTICK (test code = BILU) NEGATIVE mg/dL NEGATIVE UA KETONE DIPSTICK (test code = KETU) Negative mg/dL NEGATIVE UA SPECIFIC GRAVITY (test code = SGU) 1.027 1.001-1.035 UA BLOOD DIPSTICK (test code = MARCELO) Negative NEGATIVE UA PH DIPSTICK (test code = NAI) 5.0 5.0-8.0 UA PROTEIN DIPSTICK (test code = PROU) Negative mg/dL NEGATIVE UA UROBILINIOGEN DIPSTICK (test code = URO) 4.0 (2+) mg/dL NEG ATIVE A UA NITRITE DIPSTICK (test code = DARRON) NEGATIVE NEGATIVE UA LEUKOCYTE ESTERASE W REFLEX (test code = LEUUR) TRACE NEG ATIVE A UA WBC (test code = WBCU) 0-5 #/HPF 0-5 UA RBC (test code = RBCU) 11-20 #/HPF 0-5 A UA EPITHELIAL CELLS (test code = EPIU) FEW per HPF FEW UA CALCIUM CARBONATE CRYSTALS (test code = CACARBU) MODERATE #/HPF NONE A UA MUCUS (test code = MUCU) MANY #/LPF FEW A Urine Source? Clean Catch- CT HEAD/BRAIN W/O [id number] 16:45:00 Name: LEXIE PEREZ [facility] : 1955 Age/S: 63 / F [address] [facility] #: [id number] Loc: [place] [address] Phys: Billy Auguste MD Acct: [id number] Di s Date: Status: REG ER PHONE #: [phone] Exam Date: 11/13/2018 1625 FAX #: [phone] Reason: left sided face/arm numbness, slurred speech EXAMS: CPT CODE: [id number] CT HEAD/BRAIN W/O CONT [id number] EXAM: CT of the head with out [...] by Lizette Nieto on 11/13/2018 a t 1644 Reported and signed by: Av Barbosa ch, M.D. CC: Tico Bella; Peace Auguste MD Technologist:Roya Laruen RT(R),CT; CTDI: DLP: Tr nscb Date/Time: 11/13/2018 (1644) [email or web address] Orig Print D/ T: S: 11/13/2018 (1647) CTDI: DLP: PAGE 1 Signed Report B-TYPE NATRIURETIC PEPTIDE 2018-11-13 16:41:00* Test Item Value Reference Range Interpretation Comments B-TYPE NATRIURETIC PEPTIDE (test code = BNP) 56.84 pgram/mL 0-100 N BASIC METABOLIC [id number] 16:37:00* Test Item Value Reference Range Interpretation Comments SODIUM (test code = NA) 141 mmol/L 136-145 N POTASSIUM (test code = K) 3.3 mmol/L 3.5-5.1 L CHLORIDE (test code = CL) 107.0 mmol/L 98-107 N CARBON DIOXIDE (test code = CO2) 27.0 mmol/L 21-32 N ANION GAP (test code = GAP) 10.3 10-20 N GLUCOSE (test code = GLU) 97 mg/dL 74-106 N BLOOD UREA NITROGEN (test code = BUN) 9 mg/dL 7-18 N GLOMERULAR FILTRATION RATE (test code = GFR) > 60 mL/min >=60 Estimated GFR by using Modified MDRD formula.Chronic kidney disease is defined as either kidney damageor GFR <60 mL/min/1.73 m2 for >3 months. CREATININE (test code = CREAT) 0.70 mg/dL 0.55-1.02 N Note change in reference range due to change in reagent. BUN/CREATININE RATIO (test code = BUN/CREA) 13.3 10-20 N CALCIUM (test code = CA) 8.9 mg/dL 8.5-10.1 N HEPATIC FUNCTION [id number] 16:37:00* Test Item Value Reference Range Interpretation Comments TOTAL PROTEIN (test code = PROT) 7.9 gram/dL 6.4-8.2 N ALBUMIN (test code = ALB) 3.6 g/dL 3.4-5.0 N GLOBULIN (test code = GLOB) 4.3 gram/dL 2.7-4.2 H ALBUMIN/GLOBULIN RATIO (test code = A/G) 0.8 0.75-1.50 N BILIRUBIN TOTAL (test code = BILT) 0.60 mg/dL 0.0-1.0 N BILIRUBIN DIRECT (test code = BILD) 0.19 mg/dL 0.0-0.20 N SGOT/AST (test code = AST) 17 IUnit/L 15-37 N SGPT/ALT (test code = ALT) 23 IUnit/L 12-78 N ALKALINE PHOSPHATASE TOTAL (test code = ALKP) 111 IUnit/L 45-117 N Note change in reference range due to change in reagent. [id number] 16:37:00* Test Item Value Reference Range Interpretation Comments LIPASE (test code = LIP) 76 U/L 73.0-393.0 N [id number] 16:37:00* Test Item Value Reference Range Interpretation Comments MAGNESIUM (test code = MAG) 2.6 mg/dL 1.8-2.4 H CPK-MB [id number] 16:37:00* Test Item Value Reference Range Interpretation Comments CREATINE KINASE (CK) (test code = CK) 46 IUnit/L 26-208 N CKMB (test code = CKMBT) < 1.0 ng/mL 0-6.0 N RELATIVE % INDEX (test code = REL%) 2.17 % 0.00-2.50 N "If the total CK is elevated, the CKMB Fraction must beinterpreted as a Relative % Index, Normal is less than 2.5%"NOTE: Relative % Index is not valid with a normal total CK. [id number] 16:37:00* Test Item Value Reference Range Interpretation Comments TROPONIN-I (test code = TROPI) <0.015 ng/mL 0-0.045 N BASIC METABOLIC [id number] 16:29:00* Test Item Value Reference Range Interpretation Comments SODIUM (test code = NA) 141 mmol/L 136-145 N POTASSIUM (test code = K) 3.3 mmol/L 3.5-5.1 L CHLORIDE (test code = CL) 107.0 mmol/L 98-107 N CARBON DIOXIDE (test code = CO2) mmol/L 21-32 ANION GAP (test code = GAP) 10-20 GLUCOSE (test code = GLU) mg/dL 74-106 BLOOD UREA NITROGEN (test code = BUN) mg/dL 7-18 GLOMERULAR FILTRATION RATE (test code = GFR) mL/min >=60 CREATININE (test code = CREAT) mg/dL 0.55-1.02 BUN/CREATININE RATIO (test code = BUN/CREA) 10-20 CALCIUM (test code = CA) mg/dL 8.5-10.1 HEPATIC FUNCTION [id number] 16:29:00* Test Item Value Reference Range Interpretation Comments TOTAL PROTEIN (test code = PROT) gram/dL 6.4-8.2 ALBUMIN (test code = ALB) g/dL 3.4-5.0 GLOBULIN (test code = GLOB) gram/dL 2.7-4.2 ALBUMIN/GLOBULIN RATIO (test code = A/G) 0.75-1.50 BILIRUBIN TOTAL (test code = BILT) mg/dL 0.0-1.0 BILIRUBIN DIRECT (test code = BILD) mg/dL 0.0-0.20 SGOT/AST (test code = AST) IUnit/L 15-37 SGPT/ALT (test code = ALT) IUnit/L 12-78 ALKALINE PHOSPHATASE TOTAL (test code = ALKP) IUnit/L 45-117 [id number] 16:29:00* Test Item Value Reference Range Interpretation Comments LIPASE (test code = LIP) U/L 73.0-393.0 [id number] 16:29:00* Test Item Value Reference Range Interpretation Comments MAGNESIUM (test code = MAG) mg/dL 1.8-2.4 CPK-MB [id number] 16:29:00* Test Item Value Reference Range Interpretation Comments CREATINE KINASE (CK) (test code = CK) IUnit/L 26-208 CKMB (test code = CKMBT) ng/mL 0-6.0 RELATIVE % INDEX (test code = REL%) % 0.00-2.50 [id number] 16:29:00* Test Item Value Reference Range Interpretation Comments TROPONIN-I (test code = TROPI) ng/mL 0-0.045 URINALYSIS [id number] 16:22:00* Test Item Value Reference Range Interpretation Comments UA COLOR (test code = COLU) EVETTE YELLOW A UA APPEARANCE (test code = APPU) Cloudy CLEAR A UA GLUCOSE DIPSTICK (test code = DGLUU) NEGATIVE mg/dL NEGATIVE UA BILIRUBIN DIPSTICK (test code = BILU) NEGATIVE mg/dL NEGATIVE UA KETONE DIPSTICK (test code = KETU) Negative mg/dL NEGATIVE UA SPECIFIC GRAVITY (test code = SGU) 1.027 1.001-1.035 UA BLOOD DIPSTICK (test code = MARCELO) Negative NEGATIVE UA PH DIPSTICK (test code = NAI) 5.0 5.0-8.0 UA PROTEIN DIPSTICK (test code = PROU) Negative mg/dL NEGATIVE UA UROBILINIOGEN DIPSTICK (test code = URO) 4.0 (2+) mg/dL NEG ATIVE A UA NITRITE DIPSTICK (test code = DARRON) NEGATIVE NEGATIVE UA LEUKOCYTE ESTERASE W REFLEX (test code = LEUUR) TRACE NEG ATIVE A UA WBC (test code = WBCU) per HPF 0-5 Urine Source? Clean CatchCBC W/O [id number] 16:10:00* Test Item Value Reference Range Interpretation Comments WHITE BLOOD CELL (test code = WBC) 10.5 K/mm3 4.5-12.5 N RED BLOOD CELL (test code = RBC) 4.98 mill/mm3 3.7-5.2 N HEMOGLOBIN (test code = HGB) 14.3 gram/dL 11.5-15.5 N HEMATOCRIT (test code = HCT) 44.3 % 36.0-46.0 N MEAN CELL VOLUME (test code = MCV) 89.0 fL 80-98 N MEAN CELL HGB (test code = MCH) 28.7 picogram 27.0-33.0 N MEAN CELL HGB CONCETRATION (test code = MCHC) 32.3 gram/dL 33.0-36. 0 L RED CELL DISTRIBUTION WIDTH (test code = RDW) 12.9 % 11.6-16. 2 N PLATELET COUNT (test code = PLT) 395 K/mm3 150-450 N MEAN PLATELET VOLUME (test code = MPV) 10.7 fL 6.7-11.0 N TROPONIN I [id number] 16:05:00* Test Item Value Reference Range Interpretation Comments TROPONIN I RAPID (test code = TROPIRAP) 0.00 ng/mL <0.08 Please Note New Reference Range 0.00-0.079 ng/mL - Negative>or= 0.08 ng/mL - Positive The use of serial sampling and testing protocol is arecommended practice.An elevated troponin level alone is often not sufficient fordiagnosis of myocardial infarction. Troponin results obtained by different assays may vary.Evaluation of the extent of myocardial damage based onincrease of troponin would be valid only if similarmethodology is used. - XR CHEST 2 [id number] 15:30:00 FAX: Tico Cardona MD [phone] [place]: St: REG FAX: Peace Tolentino [phone] Name: PEREZLEXIE [facility] : 1955 Age/S: 63/F [address] [facility] Unit #: [id number] Loc: [place] [address] Phys: Peace Auguste MD Acct: [id number] Dis Date: Status: REG ER PHONE #: [phone] Exam Date: 11/13/2018 1507 FAX #: [phone] Reason: CHEST PAIN EXAMS: CPT CODE: [id number] XR CHEST 2 V 22601 REASON FOR EXAM: CHEST PAIN Exam Order [...] MD Technologist: Nuvia Fisher Trnscrd Date/Time/By: 11/13/2018 (4418) : By: [email or web address] Orig Print D/T: S: 11/13/2018 (0283) PAGE 1 Signed Report [id number] 12:48:00* Test Item Value Reference Range Interpretation Comments GLUBED (test code = GLUBED) 95 mg/dL 60-125 N - XR FLUORO FOR SPINE [id number] 15:06:00 Patient Name: LEXIE CHAMPAGNE Unit No: [id number] EXAMS: CPT CODE: [id number] XR FLUORO FOR SPINE INJ 12282 CERVICAL TRANSFORAMINAL INJECTION REFERRING PHYSICIAN: PREOPERATIVE DIAGNOSIS: [...] to the PACU in go od condition. [facility] NAME: LEXIE PALACIOS [address] [facility] PHYS: Sky Gutierres MD [place], [place] [address] : 1955 AGE: 63 S EX: F LOC: T[place]IN PHONE #: [phone] EXAM DATE: 10/21/2018 STATUS: REG [facility] FAX #: [phone] RAD #: D/C DT PAG E 1 Signed Report (CONTINUED) Patient Name: NICOLEXIE Unit No: [id number] EXAMS: CPT CODE: [id number] XR FLUORO FOR SP INE INJ 42259 <Continued> at 1506 Reported and signed by: Sky Rizo M.D. CC: Sky Rizo MD Technologist: Indira Chamorro(R) Transcribed D/ (2276) [email or web address] [facility] NAME: LEXIE WALSH [address] [facility] [address] PHYS: Sky Gutierres MD [place], [place] [address] : 1955 AGE: 63 SEX: F LOC: TREVIN PHONE #: [phone] EXAM DATE: 10/21/2018 STATUS: REG [facility] FAX #: [phone] RAD #: D/C DT PAGE 2 S igned Report Patient Name: DEIDRA WALSH Unit No: [id number] EXAMS: CPT CODE: [id number] XR FLUORO FOR SPINE INJ 7 7003 <Continued> Orig Print D/T: S: 10/21/2018 (1509) [facility] NAME: GEMLEXIE MIRZA [address] [facility] PHYS: Sky Gutierres MD [place], [place] [address] : 1955 AGE: 63 SEX: F LOC: TREVIN PHONE #: [phone] EXAM DATE: 10/21/2018 STATUS: REG [facility] FAX #: [phone] RAD #: D/C DT PAGE 3 Signed Report [id number] 09:14:00* Test Item Value Reference Range Interpretation Comments GLUBED (test code = GLUBED) 93 mg/dL 60-125 N [U] XRAY SHOULDER MIN 2 VWS RIGHT [id number] 14:36:00Images acquired, not reported on this accession number.[facility][U] XRAY SPINE LUMBOSACRAL 2 OR 3 VWS [id number] 14:36:00Images acquired, not reported on this accession number.[facility]
--- OUTSIDE RECORDS SUMMARY | 2020-07-16 20:18 | XMS REPORT | Continuity of Care Document ---
Author Author [email or web address] LEXIE Casillas [employer] Address Unknown Phone Unavailable Care Team Providers Care Teacher Specialist Name Role Phone [employer] Unavailable Un available Problems Problem Status Onset Date Classification Date Reported Comments Source Dyspareunia in female Active Problem 01/07/2018 Aramis Rodriguez Postmenopausal atrophic vaginitis Active Problem 03/2018 Aramis Rodriguez Medications Medication Details Route Status Patient Instructions Ordering Provider Order Date Source Intrarosa once nightly vaginally Active 6.5 mg vaginally once vaginally Jennifer 12/28/2017 Aramis Rodriguez Clonidine HCl 1 tablet at bedt lavinia Orally Active 0.1 MG Orally Once a day Jennifer Rodriguez Atenolol 1 tablet Orally Active 100 MG Orally Once a da y Jennifer Rodriguez Estradiol 1 tablet Orally Active 1 MG Orally Daily for T hree Weeks, 1 Week off Jennifer Rodriguez ReZyst IM as directed Orally Active Orally Jennifer Rodriguez Losartan Potassium 1 tablet Orally Active 100 MG Orally Once a day Jennifer Rodriguez Allergies, Adverse Reactions, Alerts Substance Category Reaction Severity Reaction type Status Date Reported Comments Source N.K.D.A. Adverse Reaction Info Not Available Adverse Reaction Active 12/28/2017 Aramis oRdriguez Immunizations No Data Provided for This Section Results No Data Provided for This Section Pathology Reports No Data Provided for This Section Diagnostic Reports No Data Provided for This Section Consultation Notes No Data Provided for This Section Discharge Summaries No Data Provided for This Section History and Physicals No Data Provided for This Section Vital Signs Vital Sign Value Date Comments Source Weight 148 12/28/2017 Aramis Rodriguez Height 59 0 12/28/2017 Aramis Rodriguez Diastolic (mm Hg) 76 12/28/2017 Aramis Rodriguez Systolic (mm Hg) 128 12/28/2017 Aramis Rodriguez Encounters No Data Provided for This Section Procedures No Data Provided for This Section Assessment and Plan No Data Provided for This Section Plan of Care No Data Provided for This Section Social History No Data Provided for This Section Family History No Data Provided for This Section Advance Directives No Data Provided for This Section Functional Status No Data Provided for This Section
[2020-07-16 20:32] LABS: BASOPHILS # (AUTO) 0.1 (0.0-0.1); BASOPHILS % 0.3 % (0.0-1.0); EOSINOPHILS # (AUTO) 0.2 (0.0-0.4); EOSINOPHILS % 0.9 % (0.0-6.0); HEMATOCRIT 46.1 % (34.2-44.1); HEMOGLOBIN 15.7 g/dL (12.0-16.0); LYMPHOCYTES # (AUTO) 4.8 (1.0-3.2); LYMPHOCYTES % 25.1 % (18.0-39.1); MEAN CORPUSCULAR HEMOGLOBIN 28.5 pg (28-32); MEAN CORPUSCULAR HGB CONC 34.1 g/dL (31-35); MEAN CORPUSCULAR VOLUME 83.7 fL (81-99); MONOCYTES # (AUTO) 1.4 (0.2-0.8); MONOCYTES % 7.1 % (4.4-11.3); NEUTROPHILS # (AUTO) 12.7 (2.1-6.9); NEUTROPHILS % 66.1 % (38.7-80.0); PLATELET COUNT 481 x10e3/uL (140-360); RED BLOOD COUNT 5.51 x10e6/uL (3.6-5.1); RED CELL DISTRIBUTION WIDTH 12.7 % (11.7-14.4)
[2020-07-16 20:45] LABS: ALANINE AMINOTRANSFERASE 31 IU/L (0-55); ALBUMIN 4.1 g/dL (3.5-5.0); ALBUMIN/GLOBULIN RATIO 1.1 (0.8-2.0); ALKALINE PHOSPHATASE 124 IU/L (40-150); ANION GAP 17.8 mmol/L (8-16); BLOOD UREA NITROGEN 12 mg/dL (7-26); BUN/CREATININE RATIO 14 (6-25); CALCIUM 9.3 mg/dL (8.4-10.2); CARBON DIOXIDE 28 mmol/L (22-29); CHLORIDE 99 mmol/L (98-107); CREATINE KINASE 34 IU/L (29-168); CREATININE, SERUM 0.84 mg/dL (0.57-1.11); EST GLOMERULAR FILTRATION RATE > 60 ML/MIN (60-); GLUCOSE 134 mg/dL (74-118); SODIUM 142 mmol/L (136-145)
[2020-07-16 20:47] LABS: POTASSIUM 2.8 mmol/L (3.5-5.1)
[2020-07-16] MEDS ORDERED: POTASSIUM CHLORIDE 20 MEQ TAB CR PO STA (20:51)
[2020-07-16] MEDS ORDERED: POTASSIUM CHLORIDE 20 MEQ TAB CR PO ONE (20:55)
--- NOTE | 2020-07-16 21:10 | Emergency Department Note ---
History of Present Illnes History of Present Illness Chief Complaint: COVID PUI History of Present Illness This is a 65 year old female Chief Complaint Comment 65 Y/O FEMALE PT AAOX3 PRESENTS TO ED WITH REPORT OF CHEST PAIN WITH INSPIRATION, COUGH; PT DX'D COVID + ON 07/10/2020; WAS ALSO DX'D COVID + 04/07/2020 Historian: Patient Arrival Mode: Car Past Medical/Family History Physician Review I have reviewed the patient's past medical and family history. Any updates have been documented here. Past Medical History Recent Fever: No Clinical Suspicion of Infectio: No New/Unexplained Change in Ment: No Past Medical History: Hypertension Past Surgical History: Cholecysctectomy, Hysterectomy, Lumpectomy, Hernia Repair, Back Surgery, Bariatric Surgery Other Surgery: DEVIATED SEPTUM DETACHED RETINA ACDF BILATERAL ROTATOR CUFF REPAIR Social History Smoking Cessation: Never Smoker Counseling Performed: No Alcohol Use: None Any Illegal Drug Use: No Other Last Tetanus: UNKNOWN Review of Systems Review of Systems Constitutional: Reports as per HPI, Reports chills, Reports fever EENTM: Reports no symptoms Cardiovascular: Reports as per HPI, Reports chest pain Respiratory: Reports as per HPI, Reports cough Gastrointestinal: Reports no symptoms Genitourinary: Reports no symptoms Musculoskeletal: Reports no symptoms Integumentary: Reports no symptoms Neurological: Reports no symptoms Psychological: Reports no symptoms Endocrine: Reports no symptoms Hematological/Lymphatic: Reports no symptoms Physical Exam Related Data Allergies: Coded Allergies: DALE Inhibitors (Verified Allergy, Severe, COUGH, 11/15/19) aspirin (Verified Allergy, Unknown, 07/29/19) Triage Vital Signs Vital Signs Date Time Temp Pulse Resp B/P (MAP) Pulse Ox O2 Delivery O2 Flow Rate FiO2 07/16/20 20:09 98.4 82 17 132/82 100 Room Air Vital signs reviewed: Yes Physical Exam CONSTITUTIONAL Constitutional: Present well-developed, Present well-nourished HENT HENT: Present normocephalic, Present atraumatic, Present oropharynx clear/moist, Present nose normal HENT L/R: Present left ext ear normal, Present right ext ear normal EYES Eyes: Reports PERRL, Reports conjunctivae normal NECK Neck: Present ROM normal PULMONARY Pulmonary: Present effort normal, Present breath sounds normal CARDIOVASCULAR Cardiovascular: Present regular rhythm, Present heart sounds normal, Present capillary refill normal, Present normal rate GASTROINTESTINAL Abdominal: Present soft, Present nontender, Present bowel sounds normal GENITOURINARY Genitourinary: Present exam deferred SKIN Skin: Present warm, Present dry MUSCULOSKELETAL Musculoskeletal: Present ROM normal NEUROLOGICAL Neurological: Present alert, Present oriented x 3, Present no gross motor or sensory deficits PSYCHOLOGICAL Psychological: Present mood/affect normal, Present judgement normal Results Laboratory Result Diagram: 07/16/20200507/16/202005 Laboratory Laboratory Tests Test 07/16/20 20:06 White Blood Count 19.18 x10e3/uL (4.8-10.8) Red Blood Count 5.51 x10e6/uL (3.6-5.1) Hemoglobin 15.7 g/dL (12.0-16.0) Hematocrit 46.1 % (34.2-44.1) Mean Corpuscular Volume 83.7 fL (81-99) Mean Corpuscular Hemoglobin 28.5 pg (28-32) Mean Corpuscular Hemoglobin Concent 34.1 g/dL (31-35) Red Cell Distribution Width 12.7 % (11.7-14.4) Platelet Count 481 x10e3/uL (140-360) Neutrophils (%) (Auto) 66.1 % (38.7-80.0) Lymphocytes (%) (Auto) 25.1 % (18.0-39.1) Monocytes (%) (Auto) 7.1 % (4.4-11.3) Eosinophils (%) (Auto) 0.9 % (0.0-6.0) Basophils (%) (Auto) 0.3 % (0.0-1.0) Neutrophils # (Auto) 12.7 (2.1-6.9) Lymphocytes # (Auto) 4.8 (1.0-3.2) Monocytes # (Auto) 1.4 (0.2-0.8) Eosinophils # (Auto) 0.2 (0.0-0.4) Basophils # (Auto) 0.1 (0.0-0.1) Absolute Immature Granulocyte (auto 0.09 x10e3/uL (0-0.1) Sodium Level 142 mmol/L (136-145) Potassium Level 2.8 mmol/L (3.5-5.1) Chloride Level 99 mmol/L (98-107) Carbon Dioxide Level 28 mmol/L (22-29) Anion Gap 17.8 mmol/L (8-16) Blood Urea Nitrogen 12 mg/dL (7-26) Creatinine 0.84 mg/dL (0.57-1.11) Estimat Glomerular Filtration Rate > 60 ML/MIN (60-) BUN/Creatinine Ratio 14 (6-25) Glucose Level 134 mg/dL (74-118) Calcium Level 9.3 mg/dL (8.4-10.2) Total Bilirubin 1.0 mg/dL (0.2-1.2) Aspartate Amino Transf (AST/SGOT) 19 IU/L (5-34) Alanine Aminotransferase (ALT/SGPT) 31 IU/L (0-55) Alkaline Phosphatase 124 IU/L (40-150) Creatine Kinase 34 IU/L (29-168) Creatine Kinase MB 0.40 ng/mL (0-5.0) Troponin I 0.018 ng/mL (0-0.300) Total Protein 8.0 g/dL (6.5-8.1) Albumin 4.1 g/dL (3.5-5.0) Globulin 3.9 g/dL (2.3-3.5) Albumin/Globulin Ratio 1.1 (0.8-2.0) Lab results reviewed: Yes Imaging Imaging results reviewed: Yes Diagnostics Tests Diagnostic test(s) reviewed: Yes Procedures 12 Lead ECG Interpretation ECG Interpretation : ECG: ECG 1 Spar Finisher: Interpreted by ED physician Date: Jul 16, 2020 Rhythm: sinus rhythm Rate: normal QRS axis: normal ST segments normal: Yes T waves normal: Yes Clinical Impression: non-specific ECG Assessment & Plan Medical Decision Making MDM 65 -year-old female presents for recent coronavirus positive test. She states she has some chest pain as well. She was coronavirus +1 month ago. Initial differential includes coronavirus versus ACS versus pneumonia. Workup shows elevated white blood cell count. EKG is well-appearing. Do not suspect pulmonary embolism this time. VS stable, within acceptable limits. Patient appropriate for DC. Reassessment Reassessment time: 21:56 Reassessment Well appearing, NAD Assessment & Plan Final Impression: (1) Coronavirus infection Depart Disposition: HOME, SELF-CARE Last Vital Signs Date Time Temp Pulse Resp B/P (MAP) Pulse Ox O2 Delivery O2 Flow Rate FiO2 07/16/20 20:09 98.4 82 17 132/82 100 Room Air Medications in the ED Potassium Chloride 40 meq STK-MED ONCE PO ; Start 07/16/20 at 20:55; Stop 07/16/20 at 20:49; Status DC Potassium Chloride 40 meq NOW STAT PO Last administered on 07/16/20at 20:53; Admin Dose 40 MEQ; Start 07/16/20 at 20:51; Stop 07/16/20 at 21:04; Status DC ECHO WARREN MD Jul 16, 2020 21:10
--- NOTE | 2020-07-17 03:35 | Diagnostic Imaging Report ---
EXAMINATION: CHEST SINGLE (PORTABLE) INDICATION: ^[id number] ^2200 ^CHEST PAIN, COVID + COMPARISON: 11/15/2019 FINDINGS: AP view TUBES and LINES: None. LUNGS: Lungs are well inflated. There is no evidence of pneumonia or pulmonary edema. PLEURA: No pleural effusion or pneumothorax. HEART AND MEDIASTINUM: The cardiomediastinal silhouette is unremarkable. BONES AND SOFT TISSUES: No acute osseous lesion. Partially seen cervical spine fusion hardware. Soft tissues are unremarkable. UPPER ABDOMEN: No free air under the diaphragm. IMPRESSION: No acute thoracic abnormality. Signed by: Dr. Felice Quintanilla MD on 07/17/2020 3:31 AM
== END 2020-07-17 00:45 | disposition home or self-care (01) ==
LOC: ER 20:09
DX: U07.1 COVID-19 (principal); I10 Essential (primary) hypertension; Z98.84 Bariatric surgery status
CPT/HCPCS: 36415; 71045; 80053; 82550; 82553; 84484; 85025; 99283

== ENCOUNTER 2020-07-21 07:53 | Inpatient (IN) | payer MEDICARE, BC ==
[~2020-07-21] VITALS: Ht 147.3 cm; Wt 54.9 kg
--- OUTSIDE RECORDS SUMMARY | 2020-07-21 08:38 | XMS REPORT | Continuity of Care Document ---
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
--- OUTSIDE RECORDS SUMMARY | 2020-07-21 08:39 | XMS REPORT | Continuity of Care Document ---
Author Author [facility] t Organization [facility] Address [address] [place] [address] Phone Unavailable Care Team Providers Care Photographic Equipment Inspector Name Role Phone NONSTAFF PCP Unavailable Sadaf Mendez Attphys Unavailable JENNIFER LANDAVERDE Attphys Unavailable CARMELINA GLYNN M.D. Attphys Unavailable Payers Payer Name Policy Type Policy Number Effective Date Expiration Date [facility] [employer] [id number] 2015 00:00:0 0 [facility] Medicare A & B [id number] 2013 00:00:00 [facility] Problems Condition Name Condition Details Condition Category Status Onset Date Resolution Date Last Treatment Date Treating Clinician Comments Source History of Back pain History of Back pain Problem HL7.CCDAR2 Resolved [facility] History of blood clots History of blood clots Problem HL7.CCDAR2 Resolve d [facility] History of Cancer History of Cancer Problem HL7.CCDAR2 Resolved [facility] History of Depression History of Depression Problem HL7.CCDAR2 Resolved [facility] History of Diabetes mellitus, type 2 History of Diabetes tia litus, type 2 Problem HL7.CCDAR2 Resolved [facility] History of Gallbladder disease History of Gallbladder diseas e Problem HL7.CCDAR2 Resolved [facility] History of Glaucoma History of Glaucoma Problem HL7.CCDAR2 Resolved [facility] History of High blood pressure History of High blood pressur e Problem HL7.CCDAR2 Resolved [facility] History of Staph infection History of Staph infection Problem HL 7.CCDAR2 Resolved [facility] Right shoulder pain, unspecified chronicity Right shou lder pain, unspecified chronicity Problem HL7.CCDAR2 [facility] Low back pain, unspecified back pain lat erality, unspecified chronicity, with sciatica presence unspecified Low back pain, unspecified back pain lat erality, unspecified chronicity, with sciatica presence unspecified Problem HL7.CCDAR2 Active [facility] Coronavirus infection Problem Active [facility] Dyspareunia in female Dysp areunia in female Active Problem 01/07/2018 Aramis Rodriguez Problem Active 2018-01-07 02:46:4 2 [facility] Postmenopausal atrophic vaginitis Postmenopausal atrophic vaginitis Active Problem 01/07/2018 Aramis Rodriguez Problem Ac tive 2018-01-07 02:46:42 [facility] Allergies, Adverse Reactions, Alerts Allergy Name Allergy Type Status Severity Reaction(s) Onset Date Inacti ve Date Treating Clinician Comments Source Angiotensin-converting enzyme inhibitor Allergy to substance Active Severe COUGH 2019-11-15 00:00:00 [facility] Aspirin Allergy to substance Active 2019-07-29 00:00:00 [facility] aspirin DA Active MO 2018-11-14 00:00:00 [facility] DALE Inhibitors DA Active NE 2018-10-21 00:00:00 [facility] DALE Inhibitors DA Active NE 2018-10-20 00:00:00 [facility] DALE Inhibitors DA Active NE 2018-02-17 00:00:00 [facility] N.K.WendiA. N.K.Anival.A. Active Info Not Available 2017-12-28 00:00:00 [facility] DALE Inhibitors drug allergy Active [facility] Family History Family Member Diagnosis Comments Start Date Stop Date Source Mother Family history of diabetes insipidus [facility] Mother Family history of hypertension [facility] Social History Social Habit Start Date Stop Date Quantity Comments Source Sex Assigned At 1955 00:00:00 1955 00:00:00 Female [facility] Medications Ordered Medication Name Filled Medication Name Start Date Stop Da te Current Medication? Ordering Clinician Indication Dosage Frequency Signature (SIG) Comments Components Source Clonidine HCl 2018-01-07 02:46:42 Yes Aramis Zendejas Schelinhl er 1 tablet at bedtime [facility] Atenolol 2018-01-07 02:46:42 Yes Aramis [facility]endejas Sche[facility]ler [facility] Estradiol 2018-01-07 02:46:42 Yes Aramis Zendejas Schettler 1 tablet [facility] ReZyst IM 2018-01-07 02:46:42 Yes Aramis Rodriguez as directed [facility] Losartan Potassium 2018-01-07 02:46:42 Yes Aramis Zendejas Sc hettler 1 tablet [facility] Intrarosa 2017-12-28 00:00:00 Yes Aramis Zendejas Schettler once nightly [facility] CloNIDine HCl - 0.1 MG Oral Tablet CloNIDine HCl - 0.1 MG Oral Tablet Yes [facility] TiZANidine HCl TABS TiZANidine HCl TABS Yes [facility] Cymbalta CPEP Cymbalta CPEP Yes [facility] Vital Signs Vital Name Observation Time Observation Value Comments Source Weight 2020-07-16 20:09:00 134 [lb_av] [facility] BMI (Body Mass Index) 2020-07-16 20:09:00 28.0 kg/m2 [facility] Body Temperature 2019-11-15 10:32:00 98.4 [degF] [facility] Height 2018-08-17 14:18:00 58 [in_us] [facility] Weight 2018-08-17 14:18:00 118 [lb_av] [facility] Body Mass Index Calculated 2018-08-17 14:18:00 24.66 kg/m2 [facility] Weight 2017-12-28 16:30:00 [facility] [place] Height 2017-12-28 16:30:00 [facility] Diastolic (mm Hg) 2017-12-28 16:30:00 [facility] [place] Systolic (mm Hg) 2017-12-28 16:30:00 Lexx roddy [place] Procedures Procedure Date / Time Performed Performing Clinician Adrian neves History of Lumbar vertebral fusion [facility] History of Bladder surgery [facility] Plan of Care Planned Activity Planned Date Details Comments Source Instructions COVID-19: 12/18/2019 [facility] Encounters Start Date/Time End Date/Time Encounter Type Admission Type [facility] Care Department Encounter ID Source 2019-11-15 07:54:00 2019-11-15 10:18:00 Departed Emergency Room 1 JENNIFER LANDAVERDE [facility] [id number] [facility] 2019-07-29 17:18:00 2019-07-29 19:30:00 Departed Emergency Room [facility] [id number] [facility] 2019-03-27 08:11:00 2019-03-27 08:11:00 Outpatient [facility] 2018-08-17 14:00:00 2018-08-17 14:00:00 Appointment; CARMELINA GLYNN M.D. OZOUDE, GEORGE, M.D. [facility] [id number] [facility] 2017-12-28 11:30:00 2017-12-28 11:30:00 Outpatient Aramis Rodriguez MD [place] [id number] eClinicalWork s Results Test Description Test Time Test Comments Results Result Comments Source CHEST SINGLE (PORTABLE) 2020-07-17 03:31:00 [facility] [address] [address] Patient Name: Tho BUTT MR #: [id number] : 1955 Age/Sex: 65/F Req #: [id number] Adm Physician: Ordered by: Echo Mendez MD Report #: [id number] Location: ER Room/Bed: Procedure: [id number] DX/CHEST SINGLE (PORTABLE) Exam Date: 07/16/20 Exam Time: 2199 REPORT STATUS: Signed EXAMINATION: CHEST SINGLE (PORTABLE) INDICATION: [id number] CHEST PAIN, COVID + COMPARISON: 11/15/2019 FINDINGS: AP view TUBES and LINES: None. LUNGS: Lungs are well inflated. There is no evidence of pneumonia or pulmonary edema. PLEURA: No pleural effusion or pneumothorax. HEART AND MEDIASTINUM: The cardiomediastinal silhouette is unremarkable. BONES AND SOFT TISSUES: No acute osseous lesion. Partially seen cervical spine fusion hardware. Soft tissues are unremarkable. UPPER ABDOMEN: No free air under the diaphragm. IMPRESSION: No acute thoracic abnormality. Signed by: Dr. Felice Bazan MD on 07/17/2020 3:31 AM Dictated By: FELICE BAZAN MD 0 Transcribed By: GLEN on 07/17/20330 COPY TO: ECHO MENDEZ MD Blood leukocytes automated count (number/volume) 2020-07-16 20:06:00 Test Item White Blood Count (test code = 6690-2) 19.18 4.8-10.8 [facility] automated count (number/volume)2020-07-16 20:06:00* Test Item Value Reference Range Interpretation Comments Red Blood Count (test code = 789-8) 5.51 3.6-5.1 [facility] hemoglobin measurement (moles/volume)2020-07-16 20:06:00* Test Item Value Reference Range Interpretation Comments Hemoglobin (test code = 59635-9) 15.7 12.0-16.0 [facility]ball[facility]ated blood hematocrit (volume fraction)2020-07-16 20:06:00* Test Item Value Reference Range Interpretation Comments Hematocrit (test code = 4544-3) 46.1 34.2-44.1 [facility]ball[facility]ated erythrocyte mean corpuscular bztmjh7385-21-78 20:06:00* Test Item Value Reference Range Interpretation Comments Mean Corpuscular Volume (test code = 787-2) 83.7 81-99 [facility]ball[facility] erythrocyte mean corpuscular hemoglobin (mass per erythrocyte)2020-07-16 20:06:00* Test Item Value Reference Range Interpretation Comments Mean Corpuscular Hemoglobin (test code = 785-6) 28.5 28-32 [facility]ball[facility] erythrocyte mean corpuscular hemoglobin concentration measurement (mass/volume)2020-07-16 20:06:00* Test Item Value Reference Range Interpretation Comments Mean Corpuscular Hemoglobin Concent (test code = 786-4) 34.1 31-35 [facility]ballRDW VofBr-Wbn4579-06-13 20:06:00* Test Item Value Reference Range Interpretation Comments Red Cell Distribution Width (test code = 45468-0) 12.7 11.7 -14.4 [facility]ball[facility]ated blood platelet count (count/volume)2020-07-16 20:06:00* Test Item Value Reference Range Interpretation Comments Platelet Count (test code = 777-3) 481 140-360 [facility] blood segmented neutrophil count as percentage of total ahqfprjlwb5899-51-80 20:06:00* Test Item Value Reference Range Interpretation Comments Neutrophils (%) (Auto) (test code = 59637-0) 66.1 38.7-80.0 [facility]ballAutomated blood lymphocyte count as percentage ot total uhhfgekeul7264-00-31 20:06:00* Test Item Value Reference Range Interpretation Comments Lymphocytes (%) (Auto) (test code = 736-9) 25.1 18.0-39.1 [facility]ballAutomated blood monocyte count as percentage of total fsacuapzci8687-23-94 20:06:00* Test Item Value Reference Range Interpretation Comments Monocytes (%) (Auto) (test code = 5905-5) 7.1 4.4-11.3 [facility]ballAutomated blood eosinophil count as percentage of total dysbwsvghn2250-79-67 20:06:00* Test Item Value Reference Range Interpretation Comments Eosinophils (%) (Auto) (test code = 713-8) 0.9 0.0-6.0 [facility]ballAutomated blood basophil count as percentage of total qfcromlclr8895-05-33 20:06:00* Test Item Value Reference Range Interpretation Comments Basophils (%) (Auto) (test code = 706-2) 0.3 0.0-1.0 [facility]ballFluoroscopic procedure less than one hour xhhktpcf6415-96-05 20:06:00* Test Item Value Reference Range Interpretation Comments IM GRANULOCYTES % (test code = IM GRANULOCYTES %) 0.5 0.0- 1.0 [facility]ballAutomated blood neutrophil count 2020-07-16 20:06:00* Test Item Value Reference Range Interpretation Comments Neutrophils # (Auto) (test code = 751-8) 12.7 2.1-6.9 [facility] lymphocytes count (number/volume) 2020-07-16 20:06:00* Test Item Value Reference Range Interpretation Comments Lymphocytes # (Auto) (test code = 35440-1) 4.8 1.0-3.2 [facility] monocytes automated count (number/volume)2020-07-16 20:06:00* Test Item Value Reference Range Interpretation Comments Monocytes # (Auto) (test code = 742-7) 1.4 0.2-0.8 [facility]ballAutomated blood eosinophil count 2020-07-16 20:06:00* Test Item Value Reference Range Interpretation Comments Eosinophils # (Auto) (test code = 711-2) 0.2 0.0-0.4 [facility]ballAutomated blood basophil count (count/volume)2020-07-16 20:06:00* Test Item Value Reference Range Interpretation Comments Basophils # (Auto) (test code = 704-7) 0.1 0.0-0.1 [facility] TomballFluoroscopic procedure less than one hour qzqhwnir2096-55-52 20:06:00* Test Item Value Reference Range Interpretation Comments Absolute Immature Granulocyte (auto (mirian t code = Absolute Immature Granulocyte (auto) 0.09 0-0.1 [facility] sodium measurement (moles/volume)2020-07-16 20:06:00* Test Item Value Reference Range Interpretation Comments Sodium Level (test code = 2951-2) 142 136-145 [facility] potassium measurement (moles/volume)2020-07-16 20:06:00* Test Item Value Reference Range Interpretation Comments Potassium Level (test code = 2823-3) 2.8 3.5-5.1 Results repeated and called to KENNY Corey at 2046 on 07/16/20 by Sam Morfin. Read back and verified.[facility] chloride measurement (moles/volume)2020-07-16 20:06:00* Test Item Value Reference Range Interpretation Comments Chloride Level (test code = 2075-0) 99 98-107 [facility] plasma carbon dioxide, total measurement (moles/volume)2020-07-16 20:06:00* Test Item Value Reference Range Interpretation Comments Carbon Dioxide Level (test code = 2028-9) 28 22-29 [facility] plasma anion jfp7382-44-60 20:06:00* Test Item Value Reference Range Interpretation Comments Anion Gap (test code = 89589-1) 17.8 8-16 [facility] urea nitrogen measurement (mass/volume)2020-07-16 20:06:00* Test Item Value Reference Range Interpretation Comments Blood Urea Nitrogen (test code = 3094-0) 12 7-26 [facility] creatinine measurement (mass/volume)2020-07-16 20:06:00* Test Item Value Reference Range Interpretation Comments Creatinine (test code = 2160-0) 0.84 0.57-1.11 [facility] plasma urea nitrogen/creatinine mass ogxqh5796-42-48 20:06:00* Test Item Value Reference Range Interpretation Comments BUN/Creatinine Ratio (test code = 3097-3) 14 6-25 [facility]ballEstimated glomerular filtration rate (GFR) mvehyhutrxwwm6318-83-78 20:06:00* Test Item Value Reference Range Interpretation Comments Estimat Glomerular Filtration Rate (test code = 103667380) > 60 >60 Ranges were taken from the National Kidney Disease Education Program and the [facility] literature.Reference ranges:60 or greater: Hvfejd09-81 ( for 3 consecutive months): Chronic kidney disease 15 or less: Kidney failureHCA [facility] Healthcare TomballGlucose qmlamersiqm9031-68-16 20:06:00* Test Item Value Reference Range Interpretation Comments Glucose Level (test code = NFZ0426) 134 74-118 [facility] plasma calcium measurement (mass/volume)2020-07-16 20:06:00* Test Item Value Reference Range Interpretation Comments Calcium Level (test code = 26549-1) 9.3 8.4-10.2 [facility] plasma total bilirubin measurement (mass/volume)2020-07-16 20:06:00* Test Item Value Reference Range Interpretation Comments Total Bilirubin (test code = 1975-2) 1.0 0.2-1.2 [facility]ballFluoroscopic procedure less than one hour oapxhett6729-36-99 20:06:00* Test Item Value Reference Range Interpretation Comments Aspartate Amino Transf (AST/SGOT) (test code = Aspartate Amino Transf (AST/SGOT)) 19 5-34 [facility] or plasma alanine aminotransferase measurement (enzymatic activity/volume)2020-07-16 20:06:00* Test Item Value Reference Range Interpretation Comments Alanine Aminotransferase (ALT/SGPT) (test code = 1742-6) 31 0-55 [facility] plasma protein measurement (mass/volume)2020-07-16 20:06:00* Test Item Value Reference Range Interpretation Comments Total Protein (test code = 2885-2) 8.0 6.5-8.1 [facility] plasma albumin measurement (mass/volume)2020-07-16 20:06:00* Test Item Value Reference Range Interpretation Comments Albumin (test code = 1751-7) 4.1 3.5-5.0 [facility]ballPlasma globulin measurement (mass/volume) 2020-07-16 20:06:00* Test Item Value Reference Range Interpretation Comments Globulin (test code = 01680-1) 3.9 2.3-3.5 [facility] plasma albumin/globulin mass lhtfz4052-28-71 20:06:00* Test Item Value Reference Range Interpretation Comments Albumin/Globulin Ratio (test code = 1759-0) 1.1 0.8-2.0 [facility] plasma alkaline phosphatase measurement (enzymatic activity/volume)2020-07-16 20:06:00* Test Item Value Reference Range Interpretation Comments Alkaline Phosphatase (test code = 6768-6) 124 40-150 [facility] or plasma creatine kinase measurement (enzymatic activity/volume)2020-07-16 20:06:00* Test Item Value Reference Range Interpretation Comments Creatine Kinase (test code = 2157-6) 34 29-168 [facility] or plasma creatine kinase MB measurement (mass/volume)2020-07-16 20:06:00* Test Item Value Reference Range Interpretation Comments Creatine Kinase MB (test code = 17063-9) 0.40 0-5.0 [facility]ballTroponin I measurement by highly sensitive enzyme pfpgkcvwptk2505-73-48 20:06:00* Test Item Value Reference Range Interpretation Comments Troponin I (test code = 24388-3) 0.018 0-0.300 [facility]ballRIBS UNILAT W/[id number] 12:00:00 [facility] [address] [address] Patient Name: Tho BUTT MR #: [id number] : [birth year] Age/Sex: 64/F Req #: [id number] Adm Physician: Ordered by: EMELY BRIGGS NP Report #: [id number] Location: ER Room/Bed: Procedure: 25 DX/RIBS UNILAT W/CXR Exam Date: 11/15/19 Exam Nahid e: 0949 REPORT STATUS: Signed Ex am: Left rib series Clinical history: Status post fall Findings: There is no evidence of acute displaced fractures in the visualized osseous structu res. The cardiac size is within normal limits. There is no evidence of pulmona ry consolidation, pleural effusion, or pneumothorax. The patient is status pos t cervical spine fusion with postoperative changes. Impression: 1. No rad iographic evidence of acute osseous injury. Signed by: Dr. Lm Loera MD on 11/15/2019 12:02 PM Dictated By: BUSHRA LOERA MD Electronically Sign ed By: BUSHRA LOERA MD on 11/15/19 1202 Transcribed By: GLEN on 11/15/19 1 202 COPY TO: EMELY BRIGGS WIRE CHARGER - [facility] NECK W/O [id number] 19:53:00 FAX: Tico Cardona MD [phone] [place]: St: ADM FAX: Peace Tolentino [phone] Name: LEXIE PEREZ GEM [employer] : 1955 Age/S: 63/F [place] Unit #: [id number] Loc: V.3075 [place] [address] Phys: Peace Auguste MD Acct: [id number] Dis Date: Status: ADM IN PHONE #: [phone] Exam Date: 11/14/2018 1930 FAX #: [phone] Reason: TIA symptoms, slurred speech and left sided wea EXAMS: CPT CODE: [id number] MRA NECK W/O CONT 18438 REASON FOR EXAM: TIA symptoms, slurred speech and left sided weakness EXAM ORDER DATE: 11/14/2018 5:14 PM Ordering Lizette: Peace Auguste MD PROCEDURE: - MRA NECK W/O CONT FINDINGS: 2-D helw-mk-rnjucs images of the neck were obtained without IV contrast using MR angiogram protocol. The carotid and vertebral arteries are unremarkable. No evidence of stenosis or fluid obstructing lesion. Metallic artifact obscuring portion of the right vertebral artery IMPRESSION: Unremarkable cervical angiogram at 1952 Reported and signed by: Shaun Pickens M.D. CC: Tico Bella; Peace Auguste MD Technologist: RT EVE - MRI [facility] Date/Time/By: 11/14 (1953) : By: Fausto.VTL Orig Print D/T: S: 11/14/2018 (1956) PAGE 1 Signed Report - MRI BRAIN W/O [id number] 19:50:00 FAX: Tico Cardona MD [phone] [place]: St: ADM FAX: Peace Tolentino [phone] Name: LEXIE PEREZ [employer] : 1955 Age/S: 63/F [place]rine [place] tem[place] Unit #: [id number] Loc: V[address] [place] [address] Phys: Peace Auguste MD Acct: [id number] Dis Date: Status: ADM IN PHONE #: [phone] Exam Date: 11/14/20181950 FAX #: [phone] Reason: TIA symptoms, slurred speech and left sided wea EXAMS: CPT CODE: [id number] MRI BRAIN W/O CONTRAST 09452 REASON FOR EXAM: TIA symptoms, slurred speech and left sided wea kness Exam Order Date: 11/13/2018 5:14 PM Attending Swapnil Rosas: Peace Auguste MD Procedure: - MRI BRAIN W/O CONTRAST Comparison: FINDINGS: Axial, sagittal, and coronal fito ges of the head were obtained using T1, T2 weighted, inversion recovery, a nd gradient echo sequences. The diffusion images are within normal limits without evidence of acute infarct. No IV gadolinium was given. The sagittal images show normal pituitary, cerebellum, and brain stem. No evidence of suprasellar mass. The axial T2, inversion recovery , and gradient echo images show no evidence of intra or extra axial mass. The ventricles, cisterns, and sulci are unremarkable. No evidence of hemor rhage. Small punctate bright intensity signal lesions in the periventricu lar region consistent with nonspecific deep white matter disease. The cerebellar pontine angle area is within normal limits. There is no evidence of mass noted. The axial T1 images show no evidence of mass. No evidence of old infarct. The coronal image s show normal optic chiasm. IMPRESSION: Minimal nonspecific deep white matter disease. Otherwise unremarkable brain. Electr onically Signed by Lizette Pickens on 11/14/2018 at 1950 Re ported and signed by: Shaun Pickens M.D. PAGE 1 Gloria d Report (CONTINUED) FAX: Tico Cardona MD [place]: B St: [facility] FAX: Peace Tolentino [phone] Name: ANALEXIE GEM [employer] : 1955 Age/S: 63/F [address] [facility] Unit #: [id number] Loc: V.[address] [place] [address] Phys: Billy Auguste MD Acct: [id number] Dis Date: Status: ADM IN PHONE #: Exam Date: 11/14/20181950 FAX #: [phone] Reason: TIA symptoms, slurred speech and left sided wea EXAMS: CPT CODE: [id number] MRI BRAIN W/ O CONTRAST 27918 <Continued> CC: Tico Bella; Peace Auguste MD Technologist: SILVA MATAMOROSRT - MRI Trnscrd Date/Time/By: 11/14/2018 (1949) : By: Corey Orig Print D/T: S: 11/14/2018 (1953) PAGE 2 Signed Report [id number] 02:14:00* Test Item Value Reference Range Interpretation Comments TROPONIN-I (test code = TROPI) <0.015 ng/mL 0-0.045 N COMMENTS TO CANNONEER: COLLECT 3 HOURS AFTER PREVIOUS SAMPLEDRUGS OF ABUSE SCREEN [id number] 01:17:00* Test Item Value Reference Range Interpretation [...] NEGATIVE <300 ng/mL DRUGS OF ABUSE SCREEN [id number] 00:48:00* Test Item Value Reference Range Interpretation [...] METHADONE (test code = [place]) <300 ng/mL [id number] 22:42:00* Test Item Value Reference Range Interpretation Comments TROPONIN-I (test code = TROPI) <0.015 ng/mL 0-0.045 N COMMENTS TO CANNONEER: COLLECT 3 HOURS AFTER PREVIOUS SAMPLEURINALYSIS [id number] 16:45:00* Test Item Value Reference Range Interpretation [...] Urine Source? Clean Catch- CT HEAD/BRAIN W/O [id number] 16:45:00 Name: LEXIE PEREZ [employer] : 1955 Age/S: 63 / F [address] [place] Unit #: [id number] Loc: [place] [address] Phys: Billy Auguste MD Acct: [id number] Di s Date: Status: REG ER PHONE #: Exam Date: 11/13/2018 1626 FAX #: Reason: left sided face/arm numbness, slurred speech EXAMS: CPT CODE: [id number] CT HEAD/BRAIN W/O CONT [id number] EXAM: CT of the head with out [...] by Lizette Nieto on 11/13/2018 a t 164 Reported and signed by: Av Barbosa ch, M.D. CC: Tico Bella; Peace Auguste MD Technologist:Roya Lauren RT(R),CT; CTDI: DLP: Tr nscb Date/Time: 11/13/2018 (1644) Lacho Orig Print D/ T: S: 11/13/2018 (1647) CTDI: DLP: PAGE 1 Signed Report B-TYPE NATRIURETIC PEPTIDE 2018-11-13 16:41:00* Test Item Value Reference Range Interpretation Comments B-TYPE NATRIURETIC PEPTIDE (test code = BNP) 56.84 pgram/mL 0-100 N BASIC METABOLIC [id number] 16:37:00* Test Item Value Reference Range Interpretation [...] CA) 8.9 mg/dL 8.5-10.1 N HEPATIC FUNCTION [id number] 16:37:00* Test Item Value Reference Range Interpretation [...] reference range due to change in reagent. [id number] 16:37:00* Test Item Value Reference Range Interpretation Comments LIPASE (test code = LIP) 76 U/L 73.0-393.0 N [id number] 16:37:00* Test Item Value Reference Range Interpretation Comments MAGNESIUM (test code = MAG) 2.6 mg/dL 1.8-2.4 H CPK-MB [id number] 16:37:00* Test Item Value Reference Range Interpretation [...] not valid with a normal total CK. [id number] 16:37:00* Test Item Value Reference Range Interpretation Comments TROPONIN-I (test code = TROPI) <0.015 ng/mL 0-0.045 N BASIC METABOLIC [id number] 16:29:00* Test Item Value Reference Range Interpretation [...] code = CA) mg/dL 8.5-10.1 HEPATIC FUNCTION [id number] 16:29:00* Test Item Value Reference Range Interpretation [...] TOTAL (test code = ALKP) IUnit/L 45-117 [id number] 16:29:00* Test Item Value Reference Range Interpretation Comments LIPASE (test code = LIP) U/L 73.0-393.0 [id number] 16:29:00* Test Item Value Reference Range Interpretation Comments MAGNESIUM (test code = MAG) mg/dL 1.8-2.4 CPK-MB [id number] 16:29:00* Test Item Value Reference Range Interpretation Comments CREATINE KINASE (CK) (test code = CK) IUnit/L 26-208 CKMB (test code = CKMBT) ng/mL 0-6.0 RELATIVE % INDEX (test code = REL%) % 0.00-2.50 [id number] 16:29:00* Test Item Value Reference Range Interpretation Comments TROPONIN-I (test code = TROPI) ng/mL 0-0.045 URINALYSIS [id number] 16:22:00* Test Item Value Reference Range Interpretation [...] HPF 0-5 Urine Source? Clean CatchCBC W/O [id number] 16:10:00* Test Item Value Reference Range Interpretation [...] MPV) 10.7 fL 6.7-11.0 N TROPONIN I [id number] 16:05:00* Test Item Value Reference Range Interpretation [...] similarmethodology is used. - XR CHEST 2 [id number] 15:30:00 FAX: Tico Cardona MD [phone] [place]: St: [facility] FAX: Peace Tolentino M [phone] Name: LEXIE PEREZ [employer] : 1955 Age/S: 63/F [address] [facility] Unit #: [id number] Loc: [place] [address] Phys: Peace Auguste MD Acct: [id number] Dis Date: Status: REG ER PHONE #: [phone] Exam Date: 11/13/2018 1509 FAX #: [phone] Reason: CHEST PAIN EXAMS: CPT CODE: [id number] XR CHEST 2 V [id number] REASON FOR EXAM: CHEST PAIN Exam Order Date: 11/13/2018 2:42 PM Ordering M.Anival.: Peace Auguste MD PROCEDURE: - XR CHEST [...] 1530 Reported and signed by: Luis Felipe Philip MD C C: Tico Bella; Peace Auguste MD Technologist: Nuvia Fisher Trnscrd Date/Time/By: 11/13/2018 (1530) : By: [email or web address] Orig Print D/T: S: 11/13/2018 (6779) PAGE 1 Signed Report [id number] 12:48:00* Test Item Value Reference Range Interpretation Comments GLUBED (test code = GLUBED) 95 mg/dL 60-125 N - XR FLUORO FOR SPINE [id number] 15:06:00 Patient Name: LEXIE CHAMPAGNE Unit No: [id number] EXAMS: CPT CODE: [id number] XR FLUORO FOR SPINE INJ 57484 CERVICAL TRANSFORAMINAL INJECTION REFERRING PHYSICIAN: PREOPERATIVE DIAGNOSIS: [...] to the PACU in go od condition. [facility] NAME: GREGORY ENALEXIE Neves [address] [facility] PHYS: DOCUD Sky Khan MD [place], [place] [address] : 1955 AGE: 63 S EX: F LOC: T[place] PHONE #: [phone] EXAM DATE: 10/21/2018 STATUS: REG [facility] FAX #: [phone] RAD #: D/C DT PAG E 1 Signed Report (CONTINUED) Patient Name: LEXIE WALSH Unit No: [id number] EXAMS: CPT CODE: [id number] XR FLUORO FOR SP INE INJ 31737 <Continued> at 1506 Reported and signed by: Sky Rizo M.D. CC: Sky Rizo MD Technologist: Indira Chamorro(R) Transcribed D/ (1506) CharoUVD [facility] NAME: LEXIE WALSH [address] PHYS: Sky Gutierres MD [place] [address] : 1955 AGE: 63 SEX: F LOC: [place] PHONE #: [phone] EXAM DATE: 10/21/2018 STATUS: REG [facility] FAX #: [phone] RAD #: D/C DT PAGE 2 S igned Report Patient Name: DEIDRA WALSH Unit No: [id number] EXAMS: CPT CODE: [id number] XR FLUORO FOR SPINE INJ 7 7003 <Continued> Orig Print D/T: S: 10/21/2018 (1509) [facility] NAME: LEXIE WALSH [address] [facility] [address] PHYS: Sky Gutierres MD [place] [address] : 1955 AGE: 63 SEX: F LOC: [place] PHONE #: [phone] EXAM DATE: 10/21/2018 STATUS: REG [facility] FAX #: [phone] RAD #: D/C DT PAGE 3 Signed Report [id number] 09:14:00* Test Item Value Reference Range Interpretation Comments GLUBED (test code = GLUBED) 93 mg/dL 60-125 N [U] XRAY SHOULDER MIN 2 VWS RIGHT [id number] 14:36:00Images acquired, not reported on this accession number.[facility][U] XRAY SPINE LUMBOSACRAL 2 OR 3 VWS [id number] 14:36:00Images acquired, not reported on this accession number.[facility]
--- NOTE | 2020-07-21 08:40 | NUR ---
PATIENT CHECKED IN AT 753AM. CORRECTIONS MADE TO NAME/B-DATE. CHART REDONE.
--- NOTE | 2020-07-21 08:44 | Emergency Department Note ---
History of Present Illnes History of Present Illness Chief Complaint: COVID PUI History of Present Illness This is a 65 year old female arrives to the ED with continued concerns of coronavirus symptoms. Patient was sent to the ER by her primary care doctor for repeat Covid testing, lab work and cardiac workup. Patient has been Covid positive for 1 week. Historian: Patient Arrival Mode: Car Additional Treatment RETIREMENT ADMINISTRATOR: NONE Onset (how long ago): day(s) Radiation: Reports non-radiation Severity: mild Duration (how long): day(s) Progression: worsening Chronicity: new Context: Reports recent illness Relieving factors: none Exacerbating factors: none Past Medical/Family History Physician Review I have reviewed the patient's past medical and family history. Any updates have been documented here. Past Medical History Recent Fever: No Clinical Suspicion of Infectio: No New/Unexplained Change in Ment: No Past Medical History: Hypertension Other Medical History: NEUROPATHY, LEFT SIDE BODY CARPAL TUNNEL Past Surgical History: Cholecysctectomy, Hysterectomy, Lumpectomy, Hernia Repair, Back Surgery, Bariatric Surgery Other Surgery: DEVIATED SEPTUM DETACHED RETINA ACDF BILATERAL ROTATOR CUFF REPAIR HIATAL HERNIA X 3 Social History Physically hurt or threatened: No Other Last Tetanus: UNKNOWN Review of Systems Review of Systems Constitutional: Reports as per HPI, Reports fever, Reports malaise, Reports weakness EENTM: Reports no symptoms Cardiovascular: Reports as per HPI, Reports chest pain Respiratory: Reports as per HPI, Reports cough Gastrointestinal: Reports no symptoms Genitourinary: Reports no symptoms Musculoskeletal: Reports no symptoms Integumentary: Reports no symptoms Neurological: Reports no symptoms Psychological: Reports no symptoms Endocrine: Reports no symptoms Hematological/Lymphatic: Reports no symptoms Physical Exam Related Data Allergies: Coded Allergies: DALE Inhibitors (Verified Allergy, Severe, COUGH, 07/21/20) aspirin (Verified Allergy, Unknown, 07/29/19) Triage Vital Signs Vital Signs Date Time Temp Pulse Resp B/P (MAP) Pulse Ox O2 Delivery O2 Flow Rate FiO2 07/21/20 08:35 98.6 78 18 147/65 100 Room Air Vital signs reviewed: Yes Physical Exam CONSTITUTIONAL Constitutional: Present well-developed, Present well-nourished HENT HENT: Present normocephalic, Present atraumatic, Present oropharynx clear/moist, Present nose normal HENT L/R: Present left ext ear normal, Present right ext ear normal EYES Eyes: Reports PERRL, Reports conjunctivae normal NECK Neck: Present ROM normal PULMONARY Pulmonary: Present effort normal, Present breath sounds normal CARDIOVASCULAR Cardiovascular: Present regular rhythm, Present heart sounds normal, Present capillary refill normal, Present normal rate GASTROINTESTINAL Abdominal: Present soft, Present nontender, Present bowel sounds normal GENITOURINARY Genitourinary: Present exam deferred SKIN Skin: Present warm, Present dry MUSCULOSKELETAL Musculoskeletal: Present ROM normal NEUROLOGICAL Neurological: Present alert, Present oriented x 3, Present no gross motor or sensory deficits PSYCHOLOGICAL Psychological: Present mood/affect normal, Present judgement normal Results Laboratory Lab results reviewed: Yes Laboratory comments Laboratory Tests Test 07/21/20 11:49 07/21/20 08:42 07/21/20 08:30 Sodium Level 142 mmol/L (136-145) Potassium Level 3.1 mmol/L (3.5-5.1) Chloride Level 102 mmol/L (98-107) Carbon Dioxide Level 26 mmol/L (22-29) Anion Gap 17.1 mmol/L (8-16) Blood Urea Nitrogen 11 mg/dL (7-26) Creatinine 0.75 mg/dL (0.57-1.11) Estimat Glomerular Filtration Rate > 60 ML/MIN (60-) BUN/Creatinine Ratio 15 (6-25) Glucose Level 149 mg/dL (74-118) Calcium Level 9.6 mg/dL (8.4-10.2) Total Bilirubin 0.5 mg/dL (0.2-1.2) Aspartate Amino Transf (AST/SGOT) 19 IU/L (5-34) Alanine Aminotransferase (ALT/SGPT) 25 IU/L (0-55) Alkaline Phosphatase 97 IU/L (40-150) Creatine Kinase 31 IU/L (29-168) Creatine Kinase MB 0.90 ng/mL (0-5.0) Troponin I 0.044 ng/mL (0-0.300) Total Protein 7.5 g/dL (6.5-8.1) Albumin 3.8 g/dL (3.5-5.0) Globulin 3.7 g/dL (2.3-3.5) Albumin/Globulin Ratio 1.0 (0.8-2.0) White Blood Count 19.15 x10e3/uL (4.8-10.8) Red Blood Count 4.90 x10e6/uL (3.6-5.1) Hemoglobin 14.0 g/dL (12.0-16.0) Hematocrit 41.7 % (34.2-44.1) Mean Corpuscular Volume 85.1 fL (81-99) Mean Corpuscular Hemoglobin 28.6 pg (28-32) Mean Corpuscular Hemoglobin Concent 33.6 g/dL (31-35) Red Cell Distribution Width 12.9 % (11.7-14.4) Platelet Count 429 x10e3/uL (140-360) Neutrophils (%) (Auto) 84.1 % (38.7-80.0) Lymphocytes (%) (Auto) 8.5 % (18.0-39.1) Monocytes (%) (Auto) 6.6 % (4.4-11.3) Eosinophils (%) (Auto) 0.0 % (0.0-6.0) Basophils (%) (Auto) 0.1 % (0.0-1.0) Neutrophils # (Auto) 16.1 (2.1-6.9) Lymphocytes # (Auto) 1.6 (1.0-3.2) Monocytes # (Auto) 1.3 (0.2-0.8) Eosinophils # (Auto) 0.0 (0.0-0.4) Basophils # (Auto) 0.0 (0.0-0.1) Absolute Immature Granulocyte (auto 0.14 x10e3/uL (0-0.1) Urine Color Yellow (YELLOW) Urine Clarity Sl cloudy (CLEAR) Urine pH 6 (5 - 7) Urine Specific [place] >=1.030 (1.010-1.025) Urine Protein 1+ (NEGATIVE) Urine Glucose (UA) Negative (NEGATIVE) Urine Ketones Negative (NEGATIVE) Urine Blood Negative (NEGATIVE) Urine Nitrite Negative (NEGATIVE) Urine Bilirubin Negative (NEGATIVE) Urine Urobilinogen 1 mg/dL (0.2 - 1) Urine Leukocyte Esterase Negative (NEGATIVE) Urine RBC 0-5 /HPF (0-5) Urine WBC 0-5 /HPF (0-5) Urine Epithelial Cells Few /LPF (NONE) Urine Bacteria Rare /HPF (NONE) Imaging Imaging results reviewed: Yes Impressions IMPRESSION: No evidence of pulmonary embolism to the level of the segmental pulmonary arteries. Minimal dependent atelectasis without evidence of pneumonia. Postsurgical changes of the stomach and GE junction. Small hiatal hernia. Mild esophageal wall thickening with fluid in the esophagus and mild gastric wall thickening, which may represent gastritis/esophagitis and gastroesophageal reflux. Recommend clinical correlation. Follow-up EGD may be considered. IMPRESSION: Mild patchy bibasilar opacities, likely atelectasis. Infection is possible in the appropriate clinical setting. Signed by: Dr. Giuliana Lennon MD on 07/21/2020 9:29 AM Procedures 12 Lead ECG Interpretation ECG Interpretation : ECG: ECG 1 Brilliandeer Looper: Interpreted by ED physician Prior ECG tracings: reviewed Rhythm: sinus rhythm QRS axis: left T wave inversion: II, III, aVF, V1, V2, V3 Clinical Impression: abnormal ECG Assessment & Plan Medical Decision Making MDM 65-year-old female arrives to the ED with complaints generalized malaise weakness and intermittent chest pain since her diagnosis of the coronavirus about a week ago. Patient's chest x-ray showed possible infection likely Covid pneumonia. Chest CT done to ensure no pulmonary embolus, proceeding with unremarkable. Patient noted to have a mild troponin elevation, EKG shows nonspecific T-wave inversions in inferolateral leads. Patient admitted for serial cardiac monitoring and pulmonary consult. Assessment & Plan Final Impression: (1) Pneumonia due to COVID-19 virus Depart Disposition: ADMITTED Last Vital Signs Date Time Temp Pulse Resp B/P (MAP) Pulse Ox O2 Delivery O2 Flow Rate FiO2 07/21/20 08:35 98.6 78 18 147/65 100 Room Air FITZ VALLE DO Jul 21, 2020 08:44
[2020-07-21] MEDS ORDERED: ASPIRIN 81 MG CHEW TAB PO ONE (08:45)
[2020-07-21 08:54] LABS: BASOPHILS % 0.1 % (0.0-1.0); HEMATOCRIT 41.7 % (34.2-44.1); LYMPHOCYTES # (AUTO) 1.6 (1.0-3.2); LYMPHOCYTES % 8.5 % (18.0-39.1); MEAN CORPUSCULAR HEMOGLOBIN 28.6 pg (28-32); MEAN CORPUSCULAR HGB CONC 33.6 g/dL (31-35); MEAN CORPUSCULAR VOLUME 85.1 fL (81-99); MONOCYTES # (AUTO) 1.3 (0.2-0.8); MONOCYTES % 6.6 % (4.4-11.3); NEUTROPHILS # (AUTO) 16.1 (2.1-6.9); NEUTROPHILS % 84.1 % (38.7-80.0); PLATELET COUNT 429 x10e3/uL (140-360); RED CELL DISTRIBUTION WIDTH 12.9 % (11.7-14.4)
[2020-07-21 08:58] LABS: CLARITY,URINE SL CLOUDY (CLEAR); COLOR,URINE YELLOW (YELLOW); KETONES,URINE NEGATIVE (NEGATIVE); LEUKOCYTE ESTERASE ,URINE NEGATIVE (NEGATIVE); NITRITE,URINE NEGATIVE (NEGATIVE); PROTEIN,URINE DIPSTICK 1+ (NEGATIVE); URINE UROBILINOGEN 1 mg/dL (0.2 - 1)
[2020-07-21 08:59] LABS: BACTERIA,URINE RARE /HPF; BILIRUBIN,URINE NEGATIVE (NEGATIVE); EPITHELIAL CELLS,URINE FEW /LPF; RBC,URINE 0-5 /HPF (0-5); WBC,URINE (MAN) 0-5 /HPF (0-5)
[2020-07-21 09:12] LABS: ALANINE AMINOTRANSFERASE 25 IU/L (0-55); ALBUMIN 3.8 g/dL (3.5-5.0); ALKALINE PHOSPHATASE 97 IU/L (40-150); ANION GAP 17.1 mmol/L (8-16); BLOOD UREA NITROGEN 11 mg/dL (7-26); BUN/CREATININE RATIO 15 (6-25); CALCIUM 9.6 mg/dL (8.4-10.2); CARBON DIOXIDE 26 mmol/L (22-29); CHLORIDE 102 mmol/L (98-107); CREATINE KINASE 31 IU/L (29-168); CREATININE, SERUM 0.75 mg/dL (0.57-1.11); EST GLOMERULAR FILTRATION RATE > 60 ML/MIN (60-); GLUCOSE 149 mg/dL (74-118); POTASSIUM 3.1 mmol/L (3.5-5.1); SODIUM 142 mmol/L (136-145)
--- NOTE | 2020-07-21 09:32 | Diagnostic Imaging Report ---
EXAMINATION: CHEST SINGLE (PORTABLE) INDICATION: C/O OF SOB COMPARISON: Chest radiograph 07/16/2020. FINDINGS: AP view TUBES and LINES: None. LUNGS: Lungs are well inflated. Mild patchy bibasilar opacities. Central vascular congestion. No evidence of lobar consolidation or pulmonary edema. PLEURA: No pleural effusion or pneumothorax. HEART AND MEDIASTINUM: The cardiomediastinal silhouette is unremarkable. BONES AND SOFT TISSUES: No acute osseous lesion. Partially seen cervical spine fusion hardware. Soft tissues are unremarkable. UPPER ABDOMEN: No free air under the diaphragm. There are cholecystectomy clips. IMPRESSION: Mild patchy bibasilar opacities, likely atelectasis. Infection is possible in the appropriate clinical setting. Signed by: Dr. Giuliana Lennon MD on 07/21/2020 9:29 AM
[2020-07-21] MEDS ORDERED: AZITHROMYCIN 500MG/NS 250 ML 250 ML IV ONE (09:35)
[2020-07-21] MEDS ORDERED: CEFTRIAXONE SOD 1 GM/NS 50 ML 50 ML IV ONE (09:45)
[2020-07-21] MEDS ORDERED: SODIUM CHLORIDE 0.9% 50ML 50 ML ONE (10:20)
[2020-07-21] MEDS ORDERED: IOPAMIDOL 370 MG/ML 200 ML INFUS..BTL INJ ONE (10:20)
--- OUTSIDE RECORDS SUMMARY | 2020-07-21 10:34 | XMS REPORT | Continuity of Care Document ---
Author Author [employer] LEXIE Casillas Simmr Address Unknown Phone Unavailable Care Team Providers Care Concrete Mixer Loader Truck Mounted Name Role Phone MOOVIA Information [email or web address] Unavailable Un available Problems Problem Status Onset [...]
--- NOTE | 2020-07-21 11:18 | Diagnostic Imaging Report ---
EXAM: CT Chest WITH contrast- Pulmonary Embolism Protocol INDICATION: Shortness of breath, chest pain. COMPARISON: None TECHNIQUE: Chest was scanned utilizing a multidetector helical scanner from the lung apex through the level of the diaphragm after administration of IV contrast. Thin section reconstructions were obtained with special concentration on the pulmonary arteries. Coronal and sagittal reformations were obtained. Pulmonary embolism protocol was performed. IV CONTRAST: 100 cc of Isovue 370 RADIATION DOSE: Total DLP: 329 mGy*cm Dose modulation, iterative reconstruction, and/or weight based adjustment of the mA/kV was utilized to reduce the radiation dose to as low as reasonably achievable. COMPLICATIONS: None FINDINGS: LINES/ TUBES: None. PULMONARY ARTERIES: No filling defect is identified within the pulmonary arteries to the segmental level. The subsegmental pulmonary arteries are not well opacified. Main pulmonary artery measures 2.1 cm in diameter. LUNGS AND AIRWAYS: The central airways are patent. No evidence of pneumonia or pulmonary edema. Minimal dependent atelectasis. PLEURA: The pleural spaces are clear. HEART AND MEDIASTINUM: The thyroid gland is normal. No mediastinal, hilar or axillary lymphadenopathy. The heart is normal in size.. Trace pericardial fluid. There is mild esophageal wall thickening. There is some fluid within the esophagus. UPPER ABDOMEN: Limited contrast-enhanced views of the upper abdomen. Postsurgical changes of the GE junction stomach. Small hiatal hernia. Status post cholecystectomy. There is mild esophageal wall thickening and fluid within the esophagus. Mild gastric wall thickening. BONES: No acute osseous abnormality. Diffuse osteopenia. SOFT TISSUES: Unremarkable. IMPRESSION: No evidence of pulmonary embolism to the level of the segmental pulmonary arteries. Minimal dependent atelectasis without evidence of pneumonia. Postsurgical changes of the stomach and GE junction. Small hiatal hernia. Mild esophageal wall thickening with fluid in the esophagus and mild gastric wall thickening, which may represent gastritis/esophagitis and gastroesophageal reflux. Recommend clinical correlation. Follow-up EGD may be considered. Signed by: Dr. Giuliana Lennon MD on 07/21/2020 11:15 AM
[2020-07-21 12:40] VITALS: BP 137/74
--- NOTE | 2020-07-21 12:40 | NUR ---
PATIENT RECEIVED FROM ER PER STRETCHER. ALERT AND VERBALLY RESPONSIVE, ABLE TO TRANSFER SELF FROM STRETCHER TO BED. DENIED PAIN AT THIS TIME. SKIN WARM AND NON DISTENDED, RESPIRATION EVEN AND UNLABORED, ABDOMEN SOFT AND NON DISTENDED. TELEMETRY B[address]. PATIENT ORIENTED TO SURROUNDINGS. FAMILY MEMBER BROUGHT LUNCH FOR PATIENT, SITTING AT BED SIDE EATING WITH NO S/S OF DISTRESS. BED IN LOWER POSITION, CALL LIGHT AT REACH.
[2020-07-21] MEDS ORDERED: DOCUSATE SODIUM 100 MG CAP PO PRN (13:15)
[2020-07-21] MEDS ORDERED: ONDANSETRON HCL INJ 2MG/ML 2ML 2 MG/ML VIAL IV PRN (13:15)
--- NOTE | 2020-07-21 13:18 | NUR ---
H&P cc: sob HPI: 65yoF, PCP ??, developed SOB, CXR suggested PNA, but CT was clear. PMH: HTN, Insomnia, GERD PShx: unknown Allergies; see emr Fh/SH: no illicits med;s see MAR ROS: unreliable v/s; revd PE tired appearing anciteric ns1s2 Reduced BS soft nt nd no e/t skin dry n.affect corea labs/meds revd A/P: 65yoF Acute bronchitis- IV abx/antitussives/antihistamine; check COVID19 Hypokalemia- replace and recheck Hyperglycemia- check hab1c/lipids Physical deconditioning- PT consult Insomnia- restart home meds GERD- PPI Prop: pepcid; lovenox Dipso; f/u labs; DAVIE WU MD, PHD.
[2020-07-21] MEDS ORDERED: ALBUTEROL SULFATE HFA 8GM INHALATION AEROSOL INH PRN (14:00)
[2020-07-21] MEDS ORDERED: POTASSIUM CHLORIDE 20 MEQ TAB CR PO ONE (14:00)
--- NOTE | 2020-07-21 14:29 | NUR ---
SPOKE WITH MD REGARDING ABNORMAL LAB RESULT, NEW ORDER RECEIVED.
--- NOTE | 2020-07-21 14:29 | NUR ---
PATIENT NOTED WITH B/P OF 189/80. NOTIFIED, NEW ORDER RECEIVED AND IMPLEMENTED. B/P RECHECKED WITH THE READING OF 152/74. WILL CLOSELY MONITOR. Addendum: 07/21/20 at 1432 by Apoorva Brock RN WRONG PATIENT.
[2020-07-21] MEDS: GUAIFENESIN/DEXTROMETHORPHAN LIQD 5 ML UDC NG SCH ×2 (14:32→22:00)
[2020-07-21] MEDS: BENZONATATE 100 MG CAP PO SCH ×2 (15:06→21:00)
[2020-07-21 16:23] VITALS: BP 148/76
[2020-07-21] MEDS: FAMOTIDINE 20 MG TAB PO SCH (17:00)
--- NOTE | 2020-07-21 17:48 | Consultation ---
DATE OF CONSULTATION: CHIEF COMPLAINT: Cough and abnormal x-ray. HISTORY OF PRESENT ILLNESS: The patient is a 65-year-old woman. She reports having COVID-19 infection in early April of this year. She did not require hospitalization and her only symptoms were cough. Approximately 10 days ago she went to the doctor again because of cough and some dyspnea. She had another COVID test that was still positive. She received some antibiotics and some Solu-Medrol with transient relief, but her symptoms returned. She came to the emergency department on the of this month. She is complaining of cough. She went home with treatment, but now returns with persistent symptoms. PAST SURGICAL HISTORY: 1. Status post gastric sleeve surgery. 2. Status post hysterectomy. 3. Status post breast lumpectomy. 4. Status post hernia repair. 5. Status post carpal tunnel syndrome. PAST MEDICAL HISTORY: 1. No prior history of asthma or bronchitis. 2. No prior history of heart disease. 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 SOCIAL HISTORY: The patient has never been a smoker. She is not a drinker. FAMILY HISTORY: Noncontributory. REVIEW OF SYSTEMS: No fever. No headache. No neck pain. She does have some cough and some mild dyspnea. She is not having wheezing. She has no chest pain. She has no abdominal pain. She has no nausea or vomiting. She has no leg edema. PHYSICAL EXAMINATION: VITAL SIGNS: The blood pressure is 137/75, saturation is 79. The respiratory rate is 20. HEENT: Shows no facial swelling or erythema. LYMPHATIC: Shows no submandibular, cervical, supraclavicular adenopathy. CARDIAC: Reveals regular rate and rhythm. Normal S1, S2. LUNGS: Auscultation of lungs show rhonchorous breath sounds bilaterally. There is no wheezing. ABDOMEN: Soft nontender. There is no rebound or guarding. EXTREMITIES: Show no leg edema or calf tenderness. There is no cyanosis or clubbing. SKIN: Shows no rashes. LABORATORY DATA: White blood cell count is 19.15 and hemoglobin is 14. The platelet count is 429. The BUN to creatinine ratio is 11 to 0.75 and the potassium is 3.1. The other electrolytes are within normal limits. RADIOGRAPHIC DATA: CT scan of the chest shows minimal dependent atelectasis without evidence of pneumonia. There are postsurgical changes in the stomach and GE junction as well as a small hiatal hernia. There is some mild esophageal wall thickening which may represent gastritis or esophagitis. IMPRESSION: 1. Resolving viral pneumonia and COVID-19 infection. 2. Gastroesophageal reflux. 3. Prior bariatric surgery. 4. Rhinosinusitis. 5. Possible bronchospasm. PLAN: 1. The patient should have a rescue inhaler as needed. 2. Nasal sprays. 3. Oral antibiotics. 4. Await COVID test results. MD DEMARCUS Botello/MODL /[id number]
[2020-07-21] MEDS: ENOXAPARIN SOD INJ 40 MG/0.4 ML SYR SC SCH (17:55)
[2020-07-21 18:06] LABS: CHOL/HDL RATIO 2.5 (3.0-3.6)
--- NOTE | 2020-07-21 19:15 | NUR ---
patient received awake, alert, lying quietly in bed. vss. respirations even and unlabored. patient c/o headache 02/10. pm assessment complete. call victoria placed within reach. patient instructed to call for assistance when needed.
[2020-07-21 19:25] VITALS: BP 138/67
[2020-07-21] MEDS: ACETAMINOPHEN 325 MG TAB PO PRN (19:25)
--- NOTE | 2020-07-21 19:25 | NUR ---
patient medicated with tylenol 650 mg po for c/o headache 02/10.
[2020-07-21 20:02] VITALS: BP 148/76
[2020-07-21] MEDS ORDERED: CYMBALTA30 MG PO (20:21)
[2020-07-21] MEDS ORDERED: LEVOCETIRIZINE D5 MG PO (20:21)
[2020-07-21] MEDS ORDERED: OMEPRAZOLE40 MG PO (20:21)
[2020-07-21] MEDS ORDERED: AMLODIPINE BESY10 MG PO (20:21)
[2020-07-21] MEDS ORDERED: CLONIDINE HCL0.1 MG PO (20:21)
[2020-07-21] MEDS ORDERED: ZOLPIDEM TARTRAT5 MG PO (20:21)
[2020-07-21] MEDS: ZOLPIDEM TARTRATE 5 MG TAB PO PRN (21:50)
[2020-07-22] VITALS (8 sets, daily range): BP systolic 129–144; BP diastolic 61–73
[2020-07-22] MEDS: CEFTRIAXONE SOD 1 GM/NS 50 ML 50 ML IV SCH (05:01)
[2020-07-22 05:41] LABS: BASOPHILS # (AUTO) 0.1 (0.0-0.1); BASOPHILS % 0.4 % (0.0-1.0); EOSINOPHILS # (AUTO) 0.1 (0.0-0.4); EOSINOPHILS % 0.6 % (0.0-6.0); HEMATOCRIT 38.6 % (34.2-44.1); HEMOGLOBIN 12.8 g/dL (12.0-16.0); MEAN CORPUSCULAR HEMOGLOBIN 28.3 pg (28-32); MEAN CORPUSCULAR HGB CONC 33.2 g/dL (31-35); MEAN CORPUSCULAR VOLUME 85.4 fL (81-99); MONOCYTES # (AUTO) 1.2 (0.2-0.8); MONOCYTES % 6.3 % (4.4-11.3); NEUTROPHILS % 65.1 % (38.7-80.0); PLATELET COUNT 377 x10e3/uL (140-360); RED BLOOD COUNT 4.52 x10e6/uL (3.6-5.1); RED CELL DISTRIBUTION WIDTH 13.1 % (11.7-14.4)
[2020-07-22 06:00] LABS: ANION GAP 10.9 mmol/L (8-16); BLOOD UREA NITROGEN 7 mg/dL (7-26); BUN/CREATININE RATIO 11 (6-25); CALCIUM 8.3 mg/dL (8.4-10.2); CARBON DIOXIDE 29 mmol/L (22-29); CHLORIDE 106 mmol/L (98-107); CREATININE, SERUM 0.61 mg/dL (0.57-1.11); EST GLOMERULAR FILTRATION RATE > 60 ML/MIN (60-); GLUCOSE 106 mg/dL (74-118); SODIUM 143 mmol/L (136-145)
[2020-07-22] MEDS: AZITHROMYCIN 500MG/NS 250 ML 250 ML IV SCH (06:00)
[2020-07-22] MEDS: GUAIFENESIN/DEXTROMETHORPHAN LIQD 5 ML UDC NG SCH ×3 (06:00→21:31)
[2020-07-22 06:01] LABS: POTASSIUM 2.9 mmol/L (3.5-5.1)
[2020-07-22] MEDS ORDERED: POTASSIUM CHLORIDE 20 MEQ TAB CR PO ONE (06:45)
--- NOTE | 2020-07-22 06:48 | NUR ---
IM- progress note O/N see below ROS: unreliable v/s; revd PE tired appearing anciteric ns1s2 Reduced BS soft nt nd no e/t skin dry n.affect corea labs/meds revd A/P: 65yoF Acute bronchitis- IV abx/antitussives/antihistamine; check COVID19 Hypokalemia- replace and recheck Hyperglycemia- check hab1c/lipids Physical deconditioning- PT consult Insomnia- restart home meds GERD- PPI Prop: pepcid; lovenox Dipso; f/u labs; 10-19 Hypokalemia- replace; check at 2pm; Does not have DM. DAVIE WU MD, PHD.
[2020-07-22] MEDS: ACETAMINOPHEN 325 MG TAB PO PRN (07:33)
[2020-07-22] MEDS ORDERED: LORATADINE 10 MG TAB PO SCH ×2 (09:00→21:00)
[2020-07-22] MEDS: PANTOPRAZOLE SOD 40 MG TABEC PO SCH ×2 (09:15→16:01)
[2020-07-22] MEDS: FAMOTIDINE 20 MG TAB PO SCH ×2 (09:15→16:01)
[2020-07-22] MEDS: AMLODIPINE BESYLATE 10 MG TAB PO SCH (09:16)
[2020-07-22] MEDS: DULOXETINE HCL 30 MG DELAYED RELEASE PO SCH (09:16)
[2020-07-22] MEDS: BENZONATATE 100 MG CAP PO SCH ×3 (09:16→20:28)
--- NOTE | 2020-07-22 09:53 | Diagnostic Imaging Report ---
CT BRAIN WO HISTORY: Headache COMPARISON: None. TECHNIQUE: Noncontrast axial scans were obtained from skull base to the vertex. Coronal and sagittal reconstructions obtained from the axial data. One or more of the following dose reduction techniques were used: Automated exposure control, adjustment of the mA and/or kV according to patient size, and/or utilization of iterative reconstruction technique. DISCUSSION: Scalp/Skull: Unremarkable. Brain sulci: Appropriate for patient's age. Ventricles: Normal in size and configuration. No hydrocephalus. Extra-axial spaces: No masses or fluid collections. Carotid siphon calcifications are present. Parenchyma: No abnormal densities. No mass, hemorrhage, or large vascular territory acute infarct. Dural sinuses: No abnormal densities. Sellar/Suprasellar region: Intact. Skull base: Intact. Incidental findings: Left earring is noted. IMPRESSION: No acute intracranial abnormalities. Signed by: Dr. Tony Schmid M.D. on 07/22/2020 9:49 AM
[2020-07-22] MEDS ORDERED: OXYBUTYNIN CHLOR5 MG PO (14:11)
[2020-07-22] MEDS: ENOXAPARIN SOD INJ 40 MG/0.4 ML SYR SC SCH (16:01)
--- NOTE | 2020-07-22 16:38 | NUR ---
Discontinuing PT services since patient is independent in functional mobility. Thank you Addendum: 07/22/20 at 1638 by Clint morejon PT Amended: Links added.
[2020-07-22] MEDS: OXYBUTYNIN CHLORIDE 5 MG TAB PO SCH (17:00)
--- NOTE | 2020-07-22 19:48 | Progress Note ---
DATE: SUBJECTIVE: The patient is feeling better. She has less cough and less dyspnea. She is not having fevers. PHYSICAL EXAMINATION: VITAL SIGNS: Blood pressure is 133/67, saturation is 99% on room air and the pulse is 68. HEENT: Shows no facial swelling or erythema. LYMPHATIC: Shows no submandibular, cervical or supraclavicular adenopathy. CARDIAC: Reveals regular rate and rhythm with normal S1 and S2. There are no murmurs or rubs. LUNGS: Auscultation of lungs reveals crackles at the bases. There is no wheezing. ABDOMEN: Soft and nontender. There is no rebound or guarding. EXTREMITIES: Shows no leg edema or calf tenderness. LABORATORY DATA: White blood cell count is 18.5, hemoglobin is 12.9. The platelet count is 337. Potassium is 2.9 and the other electrolytes are within normal limits. IMPRESSION: 1. Gastroesophageal reflux. 2. Resolving viral pneumonia and COVID-19 infection. 3. Prior bariatric surgery. 4. Rhinosinusitis. 5. Hypokalemia. PLAN: 1. Consider switching to oral antibiotics tomorrow. 2. Rescue inhaler as needed. 3. Continue nasal sprays. 4. Continue anti-reflux regimen. 5. Continue current efforts to get the patient out of bed. Dillon King MD [facility] /[id number]
[2020-07-22] MEDS ORDERED: NON-FORMULARY MEDICATION (Levocetirizine Dihydrochloride 5 MG) PO SCH (21:00)
[2020-07-22] MEDS: ZOLPIDEM TARTRATE 5 MG TAB PO PRN (21:31)
[2020-07-23] VITALS: BP 138/64
[2020-07-23 04:00] VITALS: BP 145/72
[2020-07-23] MEDS: GUAIFENESIN/DEXTROMETHORPHAN LIQD 5 ML UDC NG SCH ×2 (05:05→14:56)
[2020-07-23] MEDS ORDERED: SODIUM CHLORIDE 0.9% 250ML 250 ML ONE (05:09)
[2020-07-23] MEDS: AZITHROMYCIN 500MG/NS 250 ML 250 ML IV SCH (05:22)
[2020-07-23] MEDS: CEFTRIAXONE SOD 1 GM/NS 50 ML 50 ML IV SCH (06:32)
--- NOTE | 2020-07-23 06:50 | NUR ---
D/C summary Principal Dx; Acute bronchitis- IV abx/antitussives/antihistamine; check COVID19 Hypokalemia- replace and recheck Hyperglycemia- check hab1c= 5.6; does not have DM Physical deconditioning- PT consult Secondary dx: Insomnia- restart home meds GERD- PPI Prop: pepcid; lovenox Dipso; f/u labs; 10-19 Hypokalemia- replace; check at 2pm; Does not have DM. 10-20 COVID testing here negative; d/c when stable; d/c home stable f/u pcp 2 days and 1 week d/c>35mins DAVIE WU MD, PHD.
--- NOTE | 2020-07-23 07:00 | NUR ---
RECEIVED BEDSIDE SHIFT REPORT FROM OFF GOING NIGHT NURSE. PATIENT ABLE TO VOICE NEEDS. PATIENT IN STABLE CONDITION, NO S/S OF DISTRESS NOTED. RESPIRATIONS, EVEN AND NONLABORED. TELEMETRY APPLIED. IV SITE ASYMPTOMATIC AND PATENT, TRANSPARENT DRESSING C/D/I. BED IN LOWEST POSITION AND LOCKED, SIDE RAILS X 2, NONSKID SOCKS APPLIED. CALL LIGHT WITHIN REACH.
--- NOTE | 2020-07-23 07:17 | NUR ---
REPORT GIVEN TO DAYSHIFT NURSE. ALERT AND ORIENTED. RESTING AT BEDSIDE. NO SIGNS IV INFILTRATION. BED LOCKED AND IN LOW POSITION. CALL LIGHT WITHIN REACH.
[2020-07-23 07:39] VITALS: BP 121/68
[2020-07-23 07:46] VITALS: BP 121/68
[2020-07-23] MEDS: PANTOPRAZOLE SOD 40 MG TABEC PO SCH ×2 (08:56→16:30)
[2020-07-23] MEDS: BENZONATATE 100 MG CAP PO SCH ×2 (08:56→14:56)
[2020-07-23] MEDS: FAMOTIDINE 20 MG TAB PO SCH ×2 (08:56→16:30)
[2020-07-23] MEDS: DULOXETINE HCL 30 MG DELAYED RELEASE PO SCH (08:56)
[2020-07-23] MEDS: OXYBUTYNIN CHLORIDE 5 MG TAB PO SCH ×2 (08:56→17:00)
[2020-07-23] MEDS: AMLODIPINE BESYLATE 10 MG TAB PO SCH (08:57)
[2020-07-23 10:41] LABS: BASOPHILS # (AUTO) 0.1 (0.0-0.1); BASOPHILS % 0.6 % (0.0-1.0); EOSINOPHILS # (AUTO) 0.3 (0.0-0.4); EOSINOPHILS % 1.7 % (0.0-6.0); HEMOGLOBIN 13.3 g/dL (12.0-16.0); LYMPHOCYTES # (AUTO) 3.4 (1.0-3.2); LYMPHOCYTES % 22.6 % (18.0-39.1); MEAN CORPUSCULAR HEMOGLOBIN 28.5 pg (28-32); MEAN CORPUSCULAR HGB CONC 33.3 g/dL (31-35); MEAN CORPUSCULAR VOLUME 85.8 fL (81-99); MONOCYTES # (AUTO) 1.2 (0.2-0.8); MONOCYTES % 7.6 % (4.4-11.3); NEUTROPHILS # (AUTO) 10.1 (2.1-6.9); NEUTROPHILS % 67.2 % (38.7-80.0); PLATELET COUNT 371 x10e3/uL (140-360); RED BLOOD COUNT 4.66 x10e6/uL (3.6-5.1); RED CELL DISTRIBUTION WIDTH 13.2 % (11.7-14.4)
[2020-07-23 11:01] LABS: ANION GAP 13.3 mmol/L (8-16); BLOOD UREA NITROGEN 8 mg/dL (7-26); BUN/CREATININE RATIO 13 (6-25); CALCIUM 8.5 mg/dL (8.4-10.2); CARBON DIOXIDE 25 mmol/L (22-29); CHLORIDE 107 mmol/L (98-107); CREATININE, SERUM 0.64 mg/dL (0.57-1.11); EST GLOMERULAR FILTRATION RATE > 60 ML/MIN (60-); GLUCOSE 97 mg/dL (74-118); POTASSIUM 3.3 mmol/L (3.5-5.1); SODIUM 142 mmol/L (136-145)
[2020-07-23 11:46] VITALS: BP 127/66
[2020-07-23] MEDS: ACETAMINOPHEN 325 MG TAB PO PRN (12:00)
[2020-07-23 15:44] VITALS: BP 129/61
--- NOTE | 2020-07-23 16:25 | NUR ---
IMM letter delivered and explained to pt. She verbalized understanding. Signed copy placed in chart. Copy to pt.
[2020-07-23] MEDS ORDERED: POTASSIUM CHLORIDE 20 MEQ TAB CR PO ONE (16:40)
[2020-07-23] MEDS: ENOXAPARIN SOD INJ 40 MG/0.4 ML SYR SC SCH (17:00)
--- NOTE | 2020-07-23 18:09 | NUR ---
WAS NOT ABLE TO COMPLETE THE PATIENTS ELECTRONIC DISCHARGE PAPERWORK DUE TO THE REMOTE SYSTEM NOT WORKING ON THE DOCTORS END, THE PATEIN'S DISCHARGE SECTION IS LOCKED BY THE DOCTOR. HANDWRITTEN DISCHARGE COMPLETED.
--- NOTE | 2020-07-23 18:34 | NUR ---
patient discharged home. patient off the unit @ [id number] via wheelchair accompanied by pct to the lobby. patient in stable condition, no s/s of distress noted. no pain voiced. iv access removed with tip intact. all personal items taken with the patient. discharge teaching and instruction given to the patient. patient verbalized understanding. discharge paperwork given to the patient doctor call in prescriptions into the patient's pharmacy.
== END 2020-07-23 18:35 | disposition home or self-care (01) | DRG 203 ==
LOC: ER 07:55 → ERHOLD 09:49 → MED/SURG3 12:04
PROVIDERS: ADMIT Internal Medicine; ATTEND Internal Medicine
DX: J20.9 Acute bronchitis, unspecified (principal); J01.90 Acute sinusitis, unspecified; I10 Essential (primary) hypertension; G62.9 Polyneuropathy, unspecified; G47.00 Insomnia, unspecified; K21.9 Gastro-esophageal reflux disease without esophagitis; E87.6 Hypokalemia; R73.9 Hyperglycemia, unspecified; R53.81 Other malaise; Z98.84 Bariatric surgery status
CPT/HCPCS: 36415; 70450; 71045; 71260; 80048; 80053; 80061; 81001; 82550; 82553; 83036; 84132; 84484; 85025; 87040; 93005; 99284; J0456; J0696; J1650; J7050; Q9967

== ENCOUNTER 2023-07-28 11:38 | Emergency (ER) | payer MEDICARE, BC ==
[~2023-07-28] VITALS: Ht 142.2 cm; Wt 51.3 kg
[~2023-07-28 11:38] MED LIST: AMLODIPINE BESY10 MG PO; CLONIDINE HCL0.1 MG PO; CYMBALTA30 MG PO; LEVOCETIRIZINE D5 MG PO; OMEPRAZOLE40 MG PO; OXYBUTYNIN CHLOR5 MG PO; ZOLPIDEM TARTRAT5 MG PO
[2023-07-28 12:23] LABS: BASOPHILS # (AUTO) 0.1 (0.0-0.1); BASOPHILS % 0.6 % (0.0-1.0); EOSINOPHILS # (AUTO) 0.2 (0.0-0.4); EOSINOPHILS % 1.3 % (0.0-6.0); HEMOGLOBIN 13.4 g/dL (12.0-16.0); LYMPHOCYTES # (AUTO) 2.9 (1.0-3.2); LYMPHOCYTES % 24.4 % (18.0-39.1); MEAN CORPUSCULAR HEMOGLOBIN 26.9 pg (28-32); MEAN CORPUSCULAR HGB CONC 33.5 g/dL (31-35); MEAN CORPUSCULAR VOLUME 80.2 fL (81-99); MONOCYTES % 8.1 % (4.4-11.3); NEUTROPHILS # (AUTO) 7.9 (2.1-6.9); NEUTROPHILS % 65.3 % (38.7-80.0); PLATELET COUNT 357 x10e3/uL (140-360); RED BLOOD COUNT 4.99 x10e6/uL (3.6-5.1); RED CELL DISTRIBUTION WIDTH 14.2 % (11.7-14.4); WHITE BLOOD COUNT 12.02 x10e3/uL (4.8-10.8)
[2023-07-28 12:44] VITALS: O2SAT 100
[2023-07-28 13:04] LABS: ALBUMIN 4.2 g/dL (3.5-5.0); ALBUMIN/GLOBULIN RATIO 0.9 (0.8-2.0); ANION GAP 13.7 mmol/L (8-16); CALCIUM 9.7 mg/dL (8.4-10.2); CREATININE, SERUM 0.73 mg/dL (0.57-1.11); POTASSIUM 3.7 mmol/L (3.5-5.1)
[2023-07-28] MEDS ORDERED: IOPAMIDOL 370 MG/ML 100 ML INFUS..BTL INJ ONE (13:12)
[2023-07-28] MEDS ORDERED: TRIAMCINOLONE A15 G1 TOP (15:56)
[2023-07-28] MEDS ORDERED: CLEOCIN HCL300 MG PO (15:56)
== END 2023-07-28 16:24 | disposition home or self-care (01) ==
LOC: ER 11:46
DX: L03.311 Cellulitis of abdominal wall (principal); I10 Essential (primary) hypertension; K21.9 Gastro-esophageal reflux disease without esophagitis; R94.31 Abnormal electrocardiogram [ECG] [EKG]; Z98.84 Bariatric surgery status
CPT/HCPCS: 36415; 74177; 80053; 82550; 84484; 85025; 93005; 99284; Q9967

== ENCOUNTER 2024-04-04 13:37 | Emergency (ER) | payer MEDICARE, BC ==
[~2024-04-04] VITALS: Ht 142.2 cm; Wt 51.3 kg
[~2024-04-04 13:37] MED LIST changes: +CLEOCIN HCL300 MG PO; +TRIAMCINOLONE A15 G1 TOP
[2024-04-04 14:26] VITALS: PULSE 54; RESP 16; TEMP 98
[2024-04-04 16:04] VITALS: BP 187/75; PULSE 54; RESP 16; TEMP 98; O2SAT 100
== END 2024-04-04 14:35 | disposition home or self-care (01) ==
LOC: ER 14:13
DX: K94.23 Gastrostomy malfunction (principal); I10 Essential (primary) hypertension; K21.9 Gastro-esophageal reflux disease without esophagitis; Z98.890 Other specified postprocedural states
CPT/HCPCS: 99282